=== PATIENT | male | born 1950 | race Caucasian/White ===

== ENCOUNTER 2020-05-17 11:29 | Outpatient (CLI) | payer MEDICARE, SELFPAY ==
--- NOTE | ~2020-05-17 | CT_ITS ---
EXAMINATION: CT foot LT wo con DATE: 05/17/2020 11:56 INDICATION: Left foot pain TECHNIQUE: High resolution computed tomography (CT) of the left foot was performed without intravenou s contrast. Additional sagittal and coronal reconstructions were performed. Automated exposure contro l and iterative reconstruction technique were employed. The dose-length product was 391.83 mGy-cm. COMPARISON: None FINDINGS: Nondisplaced oblique coronal intra-articular fracture at the plantar base of the second metatarsal. A dditional small nondisplaced fracture along the dorsomedial rim at the base of the second metatarsal potentially avulsion fracture at the footplate of the dorsal component of the Lisfranc ligament. Autumn lar small nondisplaced fracture along the plantar/lateral rim of the rim of the medial cuneiform autumn larly suspicious for avulsion fracture the footplate of the plantar component of the Lisfranc ligamen t. No other fractures identified. Alignment remains essentially anatomic including at the tarsal meta tarsal joints. Mild polyarticular osteoarthritis at the tibiotalar, subtalar first metatarsophalangea l and multiple tarsal metatarsal joints. There are several juxta articular erosions with corticated m argins and overhanging edges most prominent at the medial head of the first metatarsal. Additional sm aller erosions at the medial base of the first proximal phalanx, the base of the first, fourth and fi fth metatarsals, the cuboid and lateral cuneiform as well as at the sustentaculum jayda with distribut ion and appearance suspicious for gout. Soft tissue swelling with subcutaneous edema over the dorsola teral aspect of the foot. No left ankle joint effusion. IMPRESSION: 1. Nondisplaced intra-articular fracture at the base of the second metatarsal and likely avulsion fra ctures at the second metatarsal and medial cuneiform footplates of the dorsal and plantar component r espectively of the Lisfranc ligament complex. No subluxation along the Lisfranc joint line. 2. Multiple small scattered juxta articular erosions with corticated margins and overhanging edges wi th distribution and appearance favoring gout. Reviewed, dictated and finalized at location A. IMPRESSION: 1. Nondisplaced intra-articular fracture at the base of the second metatarsal a nd likely avulsion fractures at the second metatarsal and medial cuneiform foot plates of the dorsal and plantar component respectively of the Lisfranc ligamen t complex. No subluxation along the Lisfranc joint line. 2. Multiple small scattered juxta articular erosions with corticated margins an d overhanging edges with distribution and appearance favoring gout.
== END 2020-05-17 11:30 | disposition home or self-care (01) ==
PROVIDERS: PCP Internal Medicine; Visit Provider Internal Medicine
DX: M79.672 Pain in left foot (principal); S92.325A Nondisplaced fracture of second metatarsal bone, left foot, initial encounter for closed fracture
CPT/HCPCS: 73700

== ENCOUNTER 2020-12-28 10:33 | Outpatient (CLI) | payer MEDICARE, SELFPAY ==
[2020-12-28 11:12] LABS: Anion Gap 7 mmol/L (8-16); Blood Urea Nitrogen 38 mg/dL (9-20); Calcium 8.9 mg/dL (8.4-10.2); Carbon Dioxide 31 mmol/L (22-30); Chloride 103 mmol/L (98-107); Estimated Glomerular Filt Rate 30; Glucose 131 mg/dL (75-110); Potassium 4.7 mmol/L (3.4-5.0); Sodium 141 mmol/L (137-145); Uric Acid 7.1 mg/dL (3.5-8.5)
== END 2020-12-28 10:34 | disposition home or self-care (01) ==
PROVIDERS: PCP Internal Medicine
DX: N18.32 Chronic kidney disease, stage 3b (principal); E87.5 Hyperkalemia
CPT/HCPCS: 36415; 80048; 84550

== ENCOUNTER 2021-02-15 13:24 | Outpatient (CLI) | payer MEDICARE, SELFPAY ==
[2021-02-15 14:55] LABS: Anion Gap 8 mmol/L (8-16); Blood Urea Nitrogen 39 mg/dL (9-20); Calcium 9.2 mg/dL (8.4-10.2); Carbon Dioxide 29 mmol/L (22-30); Chloride 106 mmol/L (98-107); Estimated Glomerular Filt Rate 31; Glucose 167 mg/dL (75-110); Sodium 143 mmol/L (137-145); Uric Acid 6.2 mg/dL (3.5-8.5)
[2021-02-15 18:09] LABS: Creatinine Urine 86.3 mg/dL; MALB Creatinine Ratio 134.4 mg/g (0-30)
== END 2021-02-15 13:25 | disposition home or self-care (01) ==
PROVIDERS: PCP Internal Medicine
DX: E79.0 Hyperuricemia without signs of inflammatory arthritis and tophaceous disease (principal); N18.4 Chronic kidney disease, stage 4 (severe)
CPT/HCPCS: 36415; 80048; 82043; 84550

== ENCOUNTER 2022-03-26 16:01 | Outpatient (CLI) | payer MEDICARE, SELFPAY ==
--- NOTE | ~2022-03-26 | US_ITS ---
EXAMINATION: US venous doppler LE RT DATE: 03/26/2022 17:13 INDICATION: RIGHT LEG SWELLING . TECHNIQUE: Grayscale images without and with compression and Doppler images of the right lower extrem ity veins were obtained. COMPARISON: None FINDINGS: Thrombosed right posterior tibial vein (anterior branch). Partially thrombosed right peroneal vein Th e right common femoral vein, profunda (deep) femoral vein, femoral vein, popliteal vein, gastrocnemiu s vein, and greater saphenous vein are patent. IMPRESSION: 1. Deep venous thrombosis involving the right posterior tibial and peroneal veins. A message was left with the balloon sander answering service at 5:56 PM on 03/26/2022, at approximately the s kristan time radiology staff transferred the patient to the ED. Discussed results and plan with Dr. Prashant Croft telephonically at 6:06 PM on 03/26/2022. Reviewed, dictated and finalized at location K. IMPRESSION: 1. Deep venous thrombosis involving the right posterior tibial and peroneal ve ins. A message was left with the balloon sander answering service at 5:56 PM on 03/26/2022, at approximately the same time radiology staff transferred the patient to the E D. Discussed results and plan with Dr. Josue Croft telephonically at 6:06 PM on 03/26/2022.
== END 2022-03-26 16:02 | disposition home or self-care (01) ==
PROVIDERS: PCP Internal Medicine; Visit Provider Student in an Organized Health Care Education/Training Program
DX: I82.401 Acute embolism and thrombosis of unspecified deep veins of right lower extremity (principal); M79.661 Pain in right lower leg
CPT/HCPCS: 93971

== ENCOUNTER 2022-03-26 18:25 | Observation (INO) | payer MEDICARE, MEDICAID, SELFPAY ==
--- NOTE | ~2022-03-26 | US_ITS ---
EXAMINATION: US carotid duplex BI DATE: 03/27/2022 18:14 INDICATION: Syncope TECHNIQUE: Grayscale, color Doppler, and pulsed Doppler images of the cervical carotid arteries were obtained. The degree of vessel stenosis is placed in one of the following categories: normal, <50%, 5 0-69%, >=70% but less than near-occlusion, near-occlusion, or total occlusion. Note that percent sten osis relative to normal distal artery lumen diameter is indirectly measured from velocity measurement s as described by Luca, et al. Radiology 2003; 229:340-346. COMPARISON: 12/07/2007 FINDINGS: RIGHT: The right common carotid artery (CCA) peak systolic velocity (PSV) is 54 cm/s. The right internal car otid artery (ICA) PSV is 52 cm/s. The right ICA end-diastolic velocity (EDV) is 11 cm/s. The right IC A/CCA PSV ratio is 1.0. Grayscale and color Doppler images yield an estimate of <50% diameter reducti on from plaque in the ICA. The external carotid artery (ECA) PSV is 89 cm/s. There is antegrade flow in the right vertebral artery. LEFT: The left CCA PSV is 80 cm/s. The left ICA PSV is 63 cm/s. The left ICA EDV is 25 cm/s. The left ICA/C CA PSV ratio is 0.8. Grayscale and color Doppler images yield an estimate of <50% diameter reduction from plaque in the ICA. The ECA PSV is 136 cm/s. There is antegrade flow in the left vertebral artery . IMPRESSION: 1. <50% stenosis in the right internal carotid artery. 2. <50% stenosis in the left internal carotid artery. 3. Cardiac arrhythmia is present. Correlate with EKG. Reviewed, dictated and finalized at location A.
--- NOTE | ~2022-03-26 | XR_ITS ---
EXAMINATION: XR chest 1V portable Exam Date/Time: 03/26/2022 21:04 CDT CLINICAL HISTORY: Deep vein thrombosis in RLE, pain/ swelling since 03/22 Comparison: 12/02/2015. RESULT: Lines, tubes, and devices: Intact sternotomy wires. Left chest pacer with intact leads. Lungs and pleura: Diffuse reticular pattern in the mid and lower lungs, with streaky subsegmental bi basilar opacities. Cardiomediastinal silhouette: Stable cardiomediastinal silhouette. Other: No acute osseous or upper abdominal finding. IMPRESSION: Pulmonary findings may reflect mild interstitial edema with bibasilar atelectasis. Infection is not e xcluded. Reviewed, dictated and finalized at location K. IMPRESSION: Pulmonary findings may reflect mild interstitial edema with bibasilar atelectas is. Infection is not excluded.
--- NOTE | ~2022-03-26 | NM_ITS ---
EXAMINATION: NM pulmonary perfusion DATE: 03/27/2022 12:16 INDICATION: Deep vein thrombosis with lower limb swelling. Assess for pulmonary embolism. TECHNIQUE: 5.2 mCi Tc-99m MAA by intravenous route. Scintigraphic images of the chest were obtained. COMPARISON: Chest radiograph dated 03/26/2022 FINDINGS: There is homogeneous perfusion throughout the lungs. No discrete ventilation and perfusion mismatch is identified. IMPRESSION: 1. Low probability for pulmonary embolism. Reviewed, dictated and finalized at location A.
--- NOTE | ~2022-03-26 | XR_ITS ---
EXAM: XR ankle RT min 3V, XR foot RT min 3V HISTORY: PAIN SWELLING,REDNESS SINCE 03/22,TWISTED . COMPARISON: None available. FINDINGS: Decreased mineralization. Subtle oblique lucencies in the distal fibula, not visible in al l projections, which may represent old healed trauma, artifact, or subtle acute fracture. Otherwise n o acute fracture. No dislocation. No lytic or blastic lesion. Subcortical cystic change and cortical irregularity in the medial aspect of the talar dome. No erosion or periosteal change. Circumferential ankle swelling greater on the lateral aspect. IMPRESSION: Possible subtle nondisplaced oblique distal right fibular fracture, correlate with point tenderness. Medial talar dome osteochondral defect. Reviewed, dictated and finalized at location K. IMPRESSION: Possible subtle nondisplaced oblique distal right fibular fracture, correlate with point tenderness. Medial talar dome osteochondral defect.
--- NOTE | ~2022-03-26 | CT_ITS ---
EXAMINATION: CT brain wo con DATE: 03/26/2022 21:29 INDICATION: SYNCOPE TECHNIQUE: Computed tomography (CT) of the head was performed without intravenous contrast. The mA wa s adjusted according to patient size. Iterative reconstruction technique was employed. The dose-lengt h product was 605.33 mGy-cm. COMPARISON: 12/04/2007 FINDINGS: No acute intracranial hemorrhage or extra-axial fluid collection. No hydrocephalus, mass, or herniation. No acute ischemic infarct. Unremarkable dural venous sinus attenuation. No acute osseous abnormality. The aerated spaces are clear. Mild atrophy and chronic white matter change. Atherosclerotic intracranial calcifications. 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 IMPRESSION: No acute intracranial process. Reviewed, dictated and finalized at location K.
[2022-03-26 19:04] VITALS: BP 117/58; PULSE 68; RESP 18; TEMP 36.4; O2SAT 96
[2022-03-26 20:45] VITALS: BP 122/76; PULSE 82; RESP 18; O2SAT 100
[2022-03-26 20:55] VITALS: BP 122/76; PULSE 80; RESP 16; O2SAT 98
--- NOTE | 2022-03-26 20:57 | ECG_ITS ---
Measurements Intervals [place] Rate: 76 P: 53 VA: 257 QRS: -79 QRSD: 205 T: 101 QT: 467 QTc: 526 Interpretive Statements ATRIAL SENSE- ELECTRONIC VENTRICULAR PACEMAKER NO FURTHER INTERPRETATION IS POSSIBLE ATYPICAL ECG Electronically Signed On 03-27-2022 6:29:44 CDT by Myke Mccracken D.O.
--- NOTE | 2022-03-26 21:08 | ED.LOWEXIN ---
HPI - Extremity Injury (Lower) General Chief Complaint: Extremity Injury, Lower Stated Complaint: blood clot right leg Time Seen by Provider: 03/26/22 20:59 Source: patient and family Mode of arrival: ambulatory Limitations: no limitations History of Present Illness HPI Narrative: Patient is 71 years old white male referred to the emergency room by his family physician because of deep vein thrombosis involving the right posterior tibial and peroneal veins. 5 days ago patient was a standing talking to some of his friend then had sudden onset of severe sharp pain of the right lower leg then work-up on the floor. Was told by his friend that he passed out for about 2 minutes. Patient denies any chest pain, lightheadedness, dizziness or shortness of breath prior to passing out. The pain at the right ankle got worse after passing out. Patient reported another syncope 3 weeks ago while standing washing his dishes. Work-up and found himself on the floor for unknown duration. He denies any injury at that time or headache or lightheadedness or chest pain or shortness of breath or fever or chills or head injury.. Currently patient main complaint is right ankle pain history of diabetes, hypertension, hyperlipidemia, CABG, pacemaker, patient lives alone. He does not smoke or drink or uses drugs Related Data Allergies Allergy/AdvReac Type Severity Reaction Status Date / Time Penicillins AdvReac Mild makes pt Verified 05/08/16 10:18 weak Review of Systems Review of Systems: All systems reviewed & are unremarkable except as noted in HPI and below Exam Narrative: General appearance: Well-developed, well-nourished Skin: Normal color Head: Normocephalic, nontraumatic Eyes: Clear conjunctiva ENT: Oropharynx normal, ears normal, nose normal Neck: Supple, nontender Chest and respiratory: Airway patent, no respiratory distress, no accessory muscle use Heart: Regular rate/rhythm Abdomen: Soft, nontender, no organomegaly, quiet bowel sounds Vascular: Normal peripheral pulses, normal capillary refill. Musculoskeletal: Right ankle is diffusely swollen, slightly warm, limited range of motion because of pain Neurologic: Alert and oriented ?3, QUALITY CONTROL SPECIALIST is normal as tested, no gross motor deficit Course Vital Signs Vital signs: Vital Signs Temperature 36.4 C 03/26/22 19:04 Pulse Rate 68 03/26/22 19:04 Respiratory Rate 18 03/26/22 19:04 Blood Pressure 117/58 L 03/26/22 19:04 Pulse Oximetry 96 03/26/22 19:04 Temperature 36.4 C 03/26/22 19:04 Pulse Rate 80 03/26/22 20:55 Respiratory Rate 16 03/26/22 20:55 Blood Pressure 122/76 03/26/22 20:55 Pulse Oximetry 98 03/26/22 20:55 MDM - Extremity Injury (Lower) Differential Diagnosis Differential diagnosis: Likely other (Syncope, pulmonary embolism, deep vein thrombosis, ankle fracture) Imaging Data Radiologist's impression: Impressions Chest X-Ray 03/26/22 21:13 IMPRESSION: Pulmonary findings may reflect mild interstitial edema with bibasilar atelectasis. Infection is not excluded. Ankle X-Ray 03/26/22 21:25 IMPRESSION: Possible subtle nondisplaced oblique distal right fibular fracture, correlate with point tenderness. Medial talar dome osteochondral defect. Foot X-Ray 03/26/22 21:25 IMPRESSION: Possible subtle nondisplaced oblique distal right fibular fracture, correlate with point tenderness. Medial talar dome osteochondral defect. Head CT 03/26/22 21:31 IMPRESSION: No acute intracranial process. ECG Data EKG #1: Attestation: I personally reviewed and interpreted this ECG as follows: ECG completion date: 03/26/22 ECG com
--- NOTE | 2022-03-26 21:21 | PC.NURSE ---
Pt in CT at this time.
[2022-03-26 21:55] LABS: Basophils Percent Auto 0.1 % (0.2-1.2); Eosinophils Absolute Auto 0.1 K/mm3 (0-0.3); Eosinophils Percent Auto 0.7 % (0-4.4); Hematocrit 38.7 % (42.0-52.0); Hemoglobin 12.8 g/dL (14.0-18.0); Immature Granulocyte Absolute 0.03 K/mm3 (0.00-0.031); Immature Granulocyte Percent A 0.3 % (0-0.5); Lymphocytes Absolute Auto 2.71 K/mm3 (0.9-3.2); Lymphocytes Percent Auto 28.5 % (18.3-44.2); Mean Corpuscular HGB Conc 33.1 g/dl (32-36); Mean Corpuscular Volume 90.8 fl (80-100); Mean Platelet Volume 10.5 fl (7.4-10.4); Monocytes Percent Auto 10.2 % (2.6-8.5); Neutrophils Absolute Auto 5.7 K/mm3 (1.3-6.7); Neutrophils Percent Auto 60.2 % (45.5-73.1); Platelet Count Result 196 k/mm3 (150-375); Red Blood Count 4.26 M/mm3 (4.6-6.20); Red Cell Distribution Width 14.3 % (11.5-14.5); White Blood Count 9.5 K/mm3 (4.5-10.0)
[2022-03-26 22:04] LABS: Alanine Aminotransferase 17 U/L (6-50); Albumin Level 3.9 g/dL (3.5-5.1); Alkaline Phosphatase 98 U/L (38-126); Anion Gap 8 mmol/L (8-16); Aspartate Amino Transferase 24 U/L (17-59); Blood Urea Nitrogen 55 mg/dL (9-20); Calcium 8.3 mg/dL (8.4-10.2); Carbon Dioxide 27 mmol/L (22-30); Chloride 96 mmol/L (98-107); Estimated CRCL calculation 22 ml/min; Estimated Glomerular Filt Rate 24; Glucose 403 mg/dL (65-110); INR 1.2; Partial Thromboplastin Time 30.6 SECONDS (22.3-36.8); Prothrombin Time 14.3 Seconds (11.1-14.7); Sodium 131 mmol/L (137-145)
[2022-03-26 22:20] LABS: Troponin I 0.087 ng/mL (0.000-0.034)
[2022-03-26 23:37] VITALS: BP 150/76; PULSE 79; RESP 17; O2SAT 94
--- NOTE | 2022-03-26 23:42 | ADMGEN ---
This patient, Desean Orozco, was admitted to IMU Room 213-01 at 2343. Patient/family oriented to hospital policies and general routines including ID bracelet, bed and alarms, visiting hours, pain management, procedures, bathroom and other care routines, personal items, smoking policy, room service/diet, and visiting hours. Information on how to activate the Rapid Response Team has been discussed. Patient/Family are encouraged to report perceived risks to care and to ask questions if they do not understand what they are told or what they should do.
[2022-03-26 23:50] VITALS: BP 145/77; PULSE 76; RESP 20; TEMP 36.8; O2SAT 99; BMI 25.7
[2022-03-27] VITALS (13 sets, daily range): BP systolic 104–165; BP diastolic 33–66; PULSE 65–91; RESP 14–20; TEMP 36.7–37.6; O2SAT 94–99
--- NOTE | 2022-03-27 | ECHO_ITS ---
Patient Info Name: Desean Orozco Age: 71 years : 1950 Gender: Male Ht: 67 in Wt: 164 lbs BSA: 1.89 m2 HR: 84 bpm BP: 123 / 54 mmHg Heart Rhythm: Sinus Rhythm, Left Bundle Branch Block Technical Quality: Good Exam Date: 03/27/2022 4:09 PM Exam Location: [facility] Exam Room: 213 Patient Status: Inpatient Admit Date: 03/27/2022 Staff Ordering Physician: Anup Mckee MD Flight Engineer Helicopter: Lynette Avina RDCS Attending Provider: Nancy Warner DO Referring Physician: Rafi SNYDER; Exam Type: CA echo doppler color flow Study Info Indications - syncope hx/o cad cabg ppm Complete two-dimensional, color flow and Doppler transthoracic echocardiogram is performed. Summary 1. Complete two-dimensional, color flow and Doppler transthoracic echocardiogram is performed. 2. Mild left ventricular enlargement. Sigmoid septum. Moderate global hypokinesis with akinesis and thinning of the basal and mid inferoseptal segments, and worse hypokinesis of the distal septum and apex. Ejection fraction visually is 40-45%, measured 46%. Grade 2 diastolic dysfunction is present. 3. Left atrial chamber dimension is moderately enlarged. 4. There is mild aortic valve regurgitation. 5. There is mild mitral valve regurgitation. 6. There is mild tricuspid valve regurgitation. 7. Mild pulmonary hypertension, estimated pulmonary arterial systolic pressure is 40 mmHg. 8. Normal sinus rhythm. Left Ventricle Left ventricular chamber dimension is mildly enlarged. Left ventricular systolic function is normal, estimated at 40-45%. There is no increased left ventricular wall thickness. Left ventricular septal wall motion is normal. The left ventricular diastolic function is grade II diastolic dysfunction. Right Ventricle Right ventricular chamber dimension is normal. Right ventricular systolic function is normal. Linear artifact in right ventricle suggestive of catheter(s), pacemaker lead(s), or ICD lead(s). Left Atria Left atrial chamber dimension is moderately enlarged. Right Atria Right atrial chamber dimension is normal. Aortic Valve The aortic valve is trileaflet. There is mild aortic valve sclerosis. There is no aortic valve stenosis. There is mild aortic valve regurgitation. Pulmonic Valve The pulmonic valve is normal. There is no pulmonic valve stenosis. There is trace pulmonic regurgitation. Mitral Valve The mitral valve has thickened leaflets. There is no mitral valve stenosis. There is mild mitral valve regurgitation. Tricuspid Valve The tricuspid valve leaflets are normal. There is no significant tricuspid valve stenosis. There is mild tricuspid valve regurgitation. Mild pulmonary hypertension, estimated pulmonary arterial systolic pressure is 40 mmHg. Pericardium/Pleural The pericardium appears normal. There is no pericardial effusion. Inferior Vena Cava Normal inferior vena cava with >50% collapse upon inspiration consistent with Empty right atrial pressure, 10 mmHg. Aorta The aortic root size at the sinus of Valsalva is normal. The prox ascending aorta size is normal. Left Ventricular Outflow Tract Name Value Normal LVOT 2D LVOT Diameter
[2022-03-27] MEDS: ENOXAPARIN 80 MG/0.8 ML SYRINGE 70 MG SUB-Q (01:00)
[2022-03-27] MEDS: SODIUM CHLORIDE 0.9% IV 1,000 ML 125 ML IV CONT ×3 (01:01→17:20)
[2022-03-27 01:33] LABS: Troponin I 0.078 ng/mL (0.000-0.034)
[2022-03-27 05:10] LABS: Anion Gap 6 mmol/L (8-16); Blood Urea Nitrogen 49 mg/dL (9-20); Calcium 8.1 mg/dL (8.4-10.2); Carbon Dioxide 26 mmol/L (22-30); Chloride 102 mmol/L (98-107); Estimated CRCL calculation 24 ml/min; Estimated Glomerular Filt Rate 27; Glucose 253 mg/dL (65-110); Potassium 3.8 mmol/L (3.4-5.0); Sodium 134 mmol/L (137-145)
[2022-03-27 05:24] LABS: Troponin I 0.075 ng/mL (0.000-0.034)
[2022-03-27 08:42] LABS: Glucose Point of Care 207 mg/dl (65-105)
[2022-03-27 14:33] LABS: Uric Acid 6.3 mg/dL (3.5-8.5)
--- NOTE | 2022-03-27 15:20 | PM.IMPN ---
Progress Note: A&P Assessment and Plan (1) Deep vein thrombosis (DVT) of distal vein of right lower extremity: Qualifiers: Chronicity: acute Qualified Code(s): I82.4Z1 - Acute embolism and thrombosis of unspecified deep veins of right distal lower extremity Code(s): I82.4Z1 - Acute embolism and thrombosis of unspecified deep veins of right distal lower extremity Status: Acute Assessment and Plan: Lovenox given in the ED. No contraindications to oral anticoagulation. Will start the patient on Eliquis. (2) Syncope: Qualifiers: Syncope type: unspecified Qualified Code(s): R55 - Syncope and collapse Code(s): R55 - Syncope and collapse Status: Acute Assessment and Plan: Workup in progress (3) DORINDA (acute kidney injury): Code(s): N17.9 - Acute kidney failure, unspecified Status: Acute Assessment and Plan: Baseline creatinine appears to be around 2.2. Patient is likely mildly volume depleted. Continue IV fluids monitor BNP daily. (4) Closed right fibular fracture: Qualifiers: Encounter type: subsequent encounter Fibula location: distal Fracture healing: with nonunion Fracture morphology: unspecified fracture morphology Qualified Code(s): S82.831K - Other fracture of upper and lower end of right fibula, subsequent encounter for closed fracture with nonunion Code(s): S82.401A - Unspecified fracture of shaft of right fibula, initial encounter for closed fracture Status: Acute Assessment and Plan: Orthopedic consult (5) Elevated troponin: Code(s): R77.8 - Other specified abnormalities of plasma proteins Status: Acute Subjective Date/time seen: 03/27/22 15:20 No complaints. Patient wants to go home Review of Systems Review of Systems: 10 point ROS negative except as stated in HPI / Subjective Exam Narrative: General: alert and oriented Psych: appropriate mood nad affect Eyes: PERRLA Neck: Trachea midline, no new lesions Skin: no changes Lungs: CTA Cardiac: Normal S1,S2, no MGR ABD: soft, nd, nt, nbs Ext: no new lesions, no cce Vasc: Pulses intact Objective Data Vital Signs Vital Signs: Vital Signs - 24 hr 03/26/22 19:04 03/26/22 20:45 03/26/22 20:55 Temperature 97.6 F Pulse Rate 68 82 80 Respiratory Rate 18 18 16 Blood Pressure 117/58 L 122/76 122/76 Pulse Oximetry 96 100 98 03/26/22 23:37 03/26/22 23:50 03/27/22 00:00 Temperature 98.2 F Pulse Rate 79 76 73 Respiratory Rate 17 20 20 Blood Pressure 150/76 H 145/77 H Pulse Oximetry 94 99 99 03/27/22 02:00 03/27/22 04:00 03/27/22 06:00 Temperature 99.1 F Pulse Rate 86 65 88 Respiratory Rate 16 Blood Pressure 104/33 L Pulse Oximetry 95 03/27/22 07:52 03/27/22 08:00 03/27/22 08:41 Temperature 98.0 F Pulse Rate 68 89 Respiratory Rate 14 Blood Pressure 123/54 L Pulse Oximetry 94 94 03/27/22 10:00 03/27/22 12:00 03/27/22 14:00 Temperature Pulse Rate 87 76 87 Respiratory Rate Blood Pressure Pulse Oximetry Intake/Output Intake/Output: Intake & Output 03/24/22 03/25/22 03/26/22 03/27/22 23:59 23:59 23:59 23:59 Intake Total 1630 Output Total 150 Balance 1480 Meds/Results Medications: Active Medications Generic Name Dose Route Start Last Admin Trade Name Freq PRN Reason Stop Dose Admin Acetaminophen 650 mg 03/26/22 22:29 Acetaminophen 325 Mg Tablet PO Q4H PRN Mild Pain (1-3) or Fever Allopurinol 150 mg 03/28/22 09:00 Allopurinol 150 Mg Tablet PO DAILY [facility] Apixaban 10 mg 03/27/22 21:00 Apixaban 5 Mg Tablet PO 04/03/22 20:59 Q12HR [facility] Aspirin 81 mg 03/28/22 09:00 Aspirin 81 Mg Enteric Tablet PO DAILY [facility] Atorvastatin Calcium 40 mg 03/28/22 09:00 Atorvastatin 40 Mg Tablet PO DAILY [facility] Carvedilol 12.5 mg 03/27/22 21:00 Carvedilol 12.5 Mg Tablet PO Q12HR [facility] Dextros
[2022-03-27] MEDS: GABAPENTIN 300 MG CAPSULE PO (17:21)
[2022-03-27] MEDS: INSULIN ASPART (*BKC) 100 UNITS/ML SUB-Q (17:21)
[2022-03-27 17:34] LABS: Glucose Point of Care 298 mg/dl (65-105)
[2022-03-27 21:07] LABS: Glucose Point of Care 221 mg/dl (65-105)
[2022-03-27 21:29] LABS: SARS-CoV-2 RNA PCR Negative
[2022-03-27] MEDS: carvediloL 12.5 MG TABLET PO (21:59)
[2022-03-27] MEDS: APIXABAN 5 MG TABLET 10 MG PO (21:59)
[2022-03-28] VITALS (9 sets, daily range): BP systolic 119–142; BP diastolic 41–67; PULSE 61–84; RESP 16–20; TEMP 36.8–37.5; O2SAT 94–99
[2022-03-28] MEDS: SODIUM CHLORIDE 0.9% IV 1,000 ML 125 ML IV CONT ×3 (04:01→23:15)
--- NOTE | 2022-03-28 04:04 | PC.NURSE ---
Pt educated on Full code vs DNR. He states that he wants to be a DNR. RN Elizabeth Camargo verified pt's decision.
[2022-03-28 05:24] LABS: Anion Gap 5 mmol/L (8-16); Blood Urea Nitrogen 35 mg/dL (9-20); Calcium 8.1 mg/dL (8.4-10.2); Carbon Dioxide 27 mmol/L (22-30); Chloride 105 mmol/L (98-107); Estimated CRCL calculation 28 ml/min; Estimated Glomerular Filt Rate 31; Glucose 168 mg/dL (65-110); Potassium 4.2 mmol/L (3.4-5.0); Sodium 137 mmol/L (137-145)
[2022-03-28 08:50] LABS: Glucose Point of Care 190 mg/dl (65-105)
[2022-03-28] MEDS: GABAPENTIN 300 MG CAPSULE PO ×3 (09:10→17:53)
[2022-03-28] MEDS: APIXABAN 5 MG TABLET 10 MG PO ×2 (09:10→21:17)
[2022-03-28] MEDS: carvediloL 12.5 MG TABLET PO ×2 (09:11→21:17)
[2022-03-28] MEDS: ATORVASTATIN 40 MG TABLET PO (09:11)
[2022-03-28] MEDS: hydroCHLOROthiazide 25 MG TABLET PO (09:11)
[2022-03-28] MEDS: ASPIRIN 81 MG ENTERIC TABLET PO (09:11)
[2022-03-28] MEDS: allopurinoL 150 MG TABLET PO (09:11)
--- NOTE | 2022-03-28 10:04 | PC.NURSE ---
Pt claims he does not believe his right fibula is fractured, stating the scans they did in the ER are just a scam to get more money out of me and to charge me more money to bandage it up. I will walk around this room if I damn please and you can't stop me. This RN educated the patient that the xray report indicates a nondisplaced fracture and that there are orders for bedrest. Patient refuses to comply with bedrest orders. Call to orthopedic doctor placed, message left for .
--- NOTE | 2022-03-28 11:39 | PM.CNOR ---
Assessment and Plan Assessment and plan (1) Right ankle injury: Qualifiers: Encounter type: initial encounter Qualified Code(s): S99.911A - Unspecified injury of right ankle, initial encounter Code(s): S99.911A - Unspecified injury of right ankle, initial encounter Status: Acute Assessment and Plan: 71-year-old male with a right ankle injury. This appears to be more of a sprain. I will order a stirrup type ankle splint for this patient. He can be weight-bearing as tolerated using a walker or crutches. Ice and elevation as well as gentle range of motion will be primary treatment modalities initially. Simple analgesics should suffice for discomfort. Can follow up with me in couple of weeks in the office. Thank you for the consultation. History of Present Illness HPI Consult date: 03/28/22 Consult reason: other (Right ankle injury) Chief complaint: Syncope,Right Deep Vein Thrombosis,Rt Fibular Fx Narrative: 71-year-old male who is admitted after having had a syncopal event several days ago. Said that he had felt a sharp pain in his right leg and then collapsed. He is not sure exactly how he might have injured his ankle and foot. He has got some soreness at the lateral aspect of right ankle and foot along with bruising. No problems like this in the past. [facility] Family History Family History Mother Lung cancer Smoker Father Cancer Sibling Kidney disease Heart attack Social History Social History Smoking status: Never smoker Alcohol intake: never Substance use: never Spiritual care concerns: No Meds Home Medications and Allergies Home Medications Medication Instructions Recorded Confirmed Type allopurinol 150 mg PO DAILY 03/27/22 03/27/22 History aspirin [Aspir-81] 81 mg PO DAILY 03/27/22 03/27/22 History atorvastatin 40 mg PO DAILY 03/27/22 03/27/22 History carvedilol 12.5 mg PO BID 03/27/22 03/27/22 History gabapentin 300 mg PO TID 03/27/22 03/27/22 History glipizide 10 mg PO DAILY 03/27/22 03/27/22 History hydrochlorothiazide 25 mg PO DAILY 03/27/22 03/27/22 History natrnzcbjzrj-jov-east-FA-vit K 1 tablet PO DAILY 03/27/22 03/27/22 History [Adults Multivitamin] sodium zirconium cyclosilicate 5 g PO DIRECTED 03/27/22 03/27/22 History [Lokelma] vitamins A,C,C-gnen-dwwmbj [Eye 1 tablet PO DAILY 03/27/22 03/27/22 History Multivitamin] Allergies Allergy/AdvReac Type Severity Reaction Status Date / Time Penicillins AdvReac Mild makes pt Verified 05/08/16 10:18 weak Vital Signs Vital Signs - 24 hr 03/27/22 12:00 03/27/22 14:00 03/27/22 16:00 Temperature 99 F Pulse Rate 76 87 75 Respiratory Rate 16 Blood Pressure 165/66 H Pulse Oximetry 98 03/27/22 20:00 03/27/22 21:00 03/28/22 00:00 Temperature 99.7 F H 99.5 F Pulse Rate 72 70 Respiratory Rate 16 20 Blood Pressure 139/63 119/48 L Pulse Oximetry 97 95 94 03/28/22 04:00 03/28/22 08:00 03/28/22 09:11 Temperature 98.8 F 98.6 F Pulse Rate 72 72 71 Respiratory Rate 16 18 Blood Pressure 126/41 L 139/59 L Pulse Oximetry 96 96 Exam Const: General: cooperative, comfortable and no acute distress Nutritional Appearance: well nourished (BMI 26.1) Extrem: Other: Examination of the right foot and ankle reveals extensive bruising laterally with tenderness primarily over the anterior talofibular ligament. No significant tenderness along the fibular shaft. Talus is stable mortise. Some restriction of ankle or hindfoot motion secondary to swelling. Neurovascular status grossly intact right lower extremity. No medial tenderness, swelling or bruising noted. Results Labs Result Diagrams: 03/26/22 21:39 03/28/22 04:58 Labs: Abnormal lab results 03/27/22 03/27/22 03/28/22 Range/Units 16:46 20:56 04:58 Anion Gap 5 L (8-16)
--- NOTE | 2022-03-28 11:56 | PM.IMPN ---
Progress Note: A&P Assessment and Plan (1) Deep vein thrombosis (DVT) of distal vein of right lower extremity: Qualifiers: Chronicity: acute Qualified Code(s): I82.4Z1 - Acute embolism and thrombosis of unspecified deep veins of right distal lower extremity Code(s): I82.4Z1 - Acute embolism and thrombosis of unspecified deep veins of right distal lower extremity Status: Acute Assessment and Plan: Lovenox given in the ED. No contraindications to oral anticoagulation. Will start the patient on Eliquis. (2) Syncope: Qualifiers: Syncope type: unspecified Qualified Code(s): R55 - Syncope and collapse Code(s): R55 - Syncope and collapse Status: Acute Assessment and Plan: Workup in progress (3) DORINDA (acute kidney injury): Code(s): N17.9 - Acute kidney failure, unspecified Status: Acute Assessment and Plan: resolved (4) Closed right fibular fracture: Qualifiers: Encounter type: subsequent encounter Fibula location: distal Fracture healing: with nonunion Fracture morphology: unspecified fracture morphology Qualified Code(s): S82.831K - Other fracture of upper and lower end of right fibula, subsequent encounter for closed fracture with nonunion Code(s): S82.401A - Unspecified fracture of shaft of right fibula, initial encounter for closed fracture Status: Acute Assessment and Plan: Orthopedic consult - no intervention needed (5) Elevated troponin: Code(s): R77.8 - Other specified abnormalities of plasma proteins Status: Acute Assessment and Plan: no rise and fall will consult cardiology given echo results with syncope Subjective Date/time seen: 03/28/22 11:56 no new complaints Exam Narrative: General: alert and oriented Psych: appropriate mood nad affect Eyes: PERRLA Neck: Trachea midline, no new lesions Skin: no changes Lungs: CTA Cardiac: Normal S1,S2, no MGR ABD: soft, nd, nt, nbs Ext: no new lesions, no cce Vasc: Pulses intact Objective Data Vital Signs Vital Signs: Vital Signs - 24 hr 03/27/22 12:00 03/27/22 14:00 03/27/22 16:00 Temperature 99 F Pulse Rate 76 87 75 Respiratory Rate 16 Blood Pressure 165/66 H Pulse Oximetry 98 03/27/22 20:00 03/27/22 21:00 03/28/22 00:00 Temperature 99.7 F H 99.5 F Pulse Rate 72 70 Respiratory Rate 16 20 Blood Pressure 139/63 119/48 L Pulse Oximetry 97 95 94 03/28/22 04:00 03/28/22 08:00 03/28/22 09:11 Temperature 98.8 F 98.6 F Pulse Rate 72 72 71 Respiratory Rate 16 18 Blood Pressure 126/41 L 139/59 L Pulse Oximetry 96 96 Intake/Output Intake/Output: Intake & Output 03/25/22 03/26/22 03/27/22 03/28/22 23:59 23:59 23:59 23:59 Intake Total 2930 1940 Output Total 450 925 Balance 2480 1015 Meds/Results Medications: Active Medications Generic Name Dose Route Start Last Admin Trade Name Freq PRN Reason Stop Dose Admin Acetaminophen 650 mg 03/26/22 22:29 Acetaminophen 325 Mg Tablet PO Q4H PRN Mild Pain (1-3) or Fever Allopurinol 150 mg 03/28/22 09:00 03/28/22 09:11 Allopurinol 150 Mg Tablet PO 150 mg DAILY KIA Administration Apixaban 10 mg 03/27/22 21:00 03/28/22 09:10 Apixaban 5 Mg Tablet PO 04/03/22 09:01 10 mg Q12HR KIA Administration Apixaban 5 mg 04/03/22 21:00 Apixaban 5 Mg Tablet PO Q12HR KIA Aspirin 81 mg 03/28/22 09:00 03/28/22 09:11 Aspirin 81 Mg Enteric Tablet PO 81 mg DAILY KIA Administration Atorvastatin Calcium 40 mg 03/28/22 09:00 03/28/22 09:11 Atorvastatin 40 Mg Tablet PO 40 mg DAILY KIA Administration Carvedilol 12.5 mg 03/27/22 21:00 03/28/22 09:11 Carvedilol 12.5 Mg Tablet PO 12.5 mg Q12HR KIA Administration Dextrose 12.5 gm 03/27/22 13:53 Dextrose 50% 25 Gm/50 Ml Syringe IV PUSH PRN PRN Hypoglycemia Protocol Gabapentin 300 mg 03/27/22 17:00 03/10
[2022-03-28 12:08] LABS: Glucose Point of Care 215 mg/dl (65-105)
--- NOTE | 2022-03-28 12:21 | PCPTNOTE ---
Unable to see patient until he has a splint. Will follow.
[2022-03-28] MEDS: INSULIN ASPART (*BKC) 100 UNITS/ML SUB-Q ×2 (13:14→17:53)
[2022-03-28 17:40] LABS: Glucose Point of Care 228 mg/dl (65-105)
[2022-03-28 20:33] LABS: Glucose Point of Care 225 mg/dl (65-105)
[2022-03-29] VITALS: BP 121/50; PULSE 68; PULSE 69; RESP 16; TEMP 36.8; O2SAT 99
[2022-03-29 04:00] VITALS: BP 132/56; PULSE 67; PULSE 68; RESP 18; TEMP 37.1; O2SAT 92
[2022-03-29 05:21] VITALS: O2SAT 94
[2022-03-29 08:00] VITALS: BP 148/64; PULSE 65; PULSE 68; RESP 16; TEMP 36.8; O2SAT 93
[2022-03-29] MEDS: SODIUM CHLORIDE 0.9% IV 1,000 ML 125 ML IV CONT (08:05)
[2022-03-29 08:37] LABS: Glucose Point of Care 162 mg/dl (65-105)
[2022-03-29 09:00] VITALS: PULSE 65
[2022-03-29] MEDS: carvediloL 12.5 MG TABLET PO (09:00)
[2022-03-29] MEDS: GABAPENTIN 300 MG CAPSULE PO ×2 (09:00→12:37)
[2022-03-29] MEDS: hydroCHLOROthiazide 25 MG TABLET PO (09:00)
[2022-03-29] MEDS: APIXABAN 5 MG TABLET 10 MG PO (09:00)
[2022-03-29] MEDS: allopurinoL 150 MG TABLET PO (09:00)
[2022-03-29] MEDS: ATORVASTATIN 40 MG TABLET PO (09:01)
[2022-03-29] MEDS: ASPIRIN 81 MG ENTERIC TABLET PO (09:01)
[2022-03-29 11:46] LABS: Glucose Point of Care 219 mg/dl (65-105)
[2022-03-29 12:00] VITALS: BP 149/67; PULSE 60; PULSE 72; RESP 18; TEMP 37; O2SAT 98
[2022-03-29] MEDS: INSULIN ASPART (*BKC) 100 UNITS/ML SUB-Q (12:37)
--- NOTE | 2022-03-29 12:42 | PM.DS ---
DS: Admitting Diagnosis Discharge Date 03/29/22 Admitting Diagnosis DVT DS: Discharge Diagnosis Discharge Diagnosis (1) Deep vein thrombosis (DVT) of distal vein of right lower extremity: Qualifiers: Chronicity: acute Qualified Code(s): I82.4Z1 - Acute embolism and thrombosis of unspecified deep veins of right distal lower extremity Code(s): I82.4Z1 - Acute embolism and thrombosis of unspecified deep veins of right distal lower extremity Status: Acute Assessment and Plan: Lovenox given in the ED. No contraindications to oral anticoagulation. Will start the patient on Eliquis. (2) Syncope: Qualifiers: Syncope type: unspecified Qualified Code(s): R55 - Syncope and collapse Code(s): R55 - Syncope and collapse Status: Acute Assessment and Plan: Workup in progress (3) DORINDA (acute kidney injury): Code(s): N17.9 - Acute kidney failure, unspecified Status: Acute Assessment and Plan: resolved (4) Closed right fibular fracture: Qualifiers: Encounter type: subsequent encounter Fibula location: distal Fracture healing: with nonunion Fracture morphology: unspecified fracture morphology Qualified Code(s): S82.831K - Other fracture of upper and lower end of right fibula, subsequent encounter for closed fracture with nonunion Code(s): S82.401A - Unspecified fracture of shaft of right fibula, initial encounter for closed fracture Status: Acute Assessment and Plan: Orthopedic consult - no intervention needed (5) Elevated troponin: Code(s): R77.8 - Other specified abnormalities of plasma proteins Status: Acute Assessment and Plan: no rise and fall will consult cardiology given echo results with syncope DS: Summary Hospital Course Hospital Course: Patient was admitted for a near syncopal episode. Evaluation revealed a DVT with possible ankle fracture. Orthopedic evaluated the patient did does not feel he has an ankle fracture that needs intervention. Follow up with ortho. Patient is also started on Eliquis for DVT. Follow up Cardiology as well Time Spent with Patient Time attestation: Total time spent providing and/or coordinating discharge services: Exam Narrative: General: alert and oriented Psych: appropriate mood nad affect Eyes: PERRLA Neck: Trachea midline, no new lesions Skin: no changes Lungs: CTA Cardiac: Normal S1,S2, no MGR ABD: soft, nd, nt, nbs Ext: no new lesions, no cce Vasc: Pulses intact DS: Data Data Completed and Pending Labs on day of discharge: Labs from last 24 hours 03/29/22 03/29/22 03/28/22 11:20 07:47 20:26 POC Capillary Glucose 219 H 162 H 225 H 03/28/22 17:38 POC Capillary Glucose 228 H Discharge Plan Discharge Attending physician on discharge: Anup Mckee Consulting providers: Nael Wolfe ; Patty Ulloa Discharging Clinician: Anup Mckee Patient Disposition: Home, Self-Care Activity: no preference Diet: as tolerated Discharge Instructions: For Dr. Wofle: Please call [facility] at as soon as possible to arrange for follow-up appointment to be seen in two weeks with Satish Dillon, our nurse practitioner. Also, call the office with any orthopedic/surgical related questions prior to follow-up. Patient Instructions: Antibiotic Form Stand Alone Forms: General Discharge Information Follow-up/Referrals: Patty Ulloa APN-C [Advanced Practice Nurse] - Julio C,uSrinder Dela Cruz MD [Primary Care Provider] - Nael Wolfe MD [Physician] - Discharge Medications: New Eliquis 5 mg Tablet 10 mg PO Q12HR 5 Days Qty: 20 RF: 0 Eliquis 5 mg Tablet 5 mg PO Q12HR 30 Days Qty: 60 RF: 0 Continued atorvastatin 40 mg tablet 40 mg PO DAILY RF: 0 carvedil
--- NOTE | 2022-03-29 12:55 | PCPTNOTE ---
Attempted physical therapy evaluation, patient still does not have a splint to ambulate with. Patient will be discharging this afternoon once the splint arrives. Will follow.
--- NOTE | 2022-03-29 13:58 | PCCCNOTE ---
On 03/29/22, the student, [Liv Almanzar], provided care and completed [facility] documentation on this patient. I have reviewed the student's documentation and agree with the findings.
--- NOTE | 2022-04-08 01:18 | PM.IMHP ---
H&P: HPI History of Present Illness Date/Time: 03/27/22 06:45 LATE ENTRY Chief Complaint: Blood clot in right leg Narrative: 71-year-old male with past medical history of chronic kidney disease stage III, coronary artery disease, 3rd degree or block, hypertension, hyperlipidemia and type 2 diabetes mellitus who presented to the ER after outpatient imaging demonstrated right lower extremity DVT in the posterior tibial peroneal veins. The patient reports that 3 weeks ago while standing washing dishes he suddenly passed out. He woke up on the floor and does not know the duration of his syncopal event. He did not have any injury at that time or headache. He denies any lightheadedness or chest pain or shortness of breath. He does have a pacemaker in place. He denied any presyncopal symptoms. In 5 days ago patient was standing talking to some friends when he had sudden onset of severe pain in his right lower calf with some associated lightheadedness, dizziness and he passed out. His friends help the some to the floor any did not hit his head. He reported they still continued to have pain in his right lower leg when he would bear weight. He reported pain was 10/10 in since he is worst. It was unrelieved despite NSAIDs. He went to his primary care physician's office on the and had an outpatient venous Doppler which demonstrated peroneal and tibial DVT. He denies any chest pain, shortness of breath or palpitations. He has never had a history of blood clots before. He denies any hematochezia or melena, he denies any hematuria. In the ER he received a dose of Lovenox. Unfortunately due to patient's chronic kidney disease he was not a candidate for a CTA. We could not perform a V/Q scan overnight. The patient was admitted for observation for evaluation with echocardiogram and V/Q scan in a.m.. Review of Systems Review of Systems: 12 systems were reviewed with pertinent positives and negatives per HPI. Except as documented in the HPI, all other systems were reviewed and are negative. [facility] Past Medical History Medical History (Updated 04/08/22 @ 01:50 by Nancy Warner DO) Coronary artery disease Diabetic peripheral neuropathy Essential hypertension Gout History of diverticulitis Hyperlipidemia Kidney stones Third degree heart block Status post pacemaker Type 2 diabetes mellitus Surgical History Surgical History History of appendectomy History of colonoscopy with polypectomy (~2003) Pacemaker (11/2015) Due to third-degree heart block S/P CABG x 1 (~2001) 1 vessel CABG Family History Family History Mother Lung cancer Smoker Father Hematologic malignancy Sibling Kidney disease Heart attack Social History Social History Social History: Code status: DNR/DNI Smoking status: Never smoker Alcohol intake: never Substance use: never Living arrangements: alone Occupation/Education: retired 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 [employer] Spiritual care concerns: No Meds Home Medications and Allergies Home Medications Medication Instructions Recorded Confirmed Type allopurinol 300 mg tablet 150 mg PO DAILY 03/27/22 03/27/22 History aspirin 81 mg tablet,delayed 81 mg PO DAILY 03/27/22 03/27/22 History release atorvastatin 40 mg tablet 40 mg PO DAILY 03/27/22 03/27/22 History carvedilol 12.5 mg tablet 12.5 mg PO BID 03/27/22 03/27/22 History gabapentin 300 mg capsule 300 mg PO TID 03/27/22 03/27/22 History glipizide 10 mg tablet 10 mg PO DAILY 03/27/22 03/27/22 History hydrochlorothiazide 25 mg tablet 25 mg PO DAILY 03/27/22 03/27/22 History multivit with minerals-iron 18 1 tablet PO DAILY 03/27/22 03/27/22 History mg-folic ac 400 mcg-vit K 25 mcg tablet (Adults Multivitamin) sodium
== END 2022-03-29 15:09 | disposition home or self-care (01) ==
LOC: ANHED 22:21 → ANHIMU 03-29 10:50
PROVIDERS: Admitting Provider Internal Medicine; Emergency Provider Emergency Medicine; PCP Internal Medicine; Visit Provider Chiropractor
DX: I82.441 Acute embolism and thrombosis of right tibial vein (principal); I82.451 Acute embolism and thrombosis of right peroneal vein; S82.831A Other fracture of upper and lower end of right fibula, initial encounter for closed fracture; S99.911A Unspecified injury of right ankle, initial encounter; R55 Syncope and collapse; R77.8 Other specified abnormalities of plasma proteins; E11.9 Type 2 diabetes mellitus without complications; I10 Essential (primary) hypertension; E78.5 Hyperlipidemia, unspecified; Z95.1 Presence of aortocoronary bypass graft; Z95.0 Presence of cardiac pacemaker; N17.9 Acute kidney failure, unspecified; Z20.822 Contact with and (suspected) exposure to COVID-19
CPT/HCPCS: 36415; 70450; 71045; 73610; 73630; 78580; 80048; 80053; 82948; 84484; 84550; 85025; 85610; 85730; 93005; 93306; 93880; 96360; 96361; 96372; 99285; A9270; A9540; C9803; G0378; J1650; J1815; J7030; U0003; U0005

== ENCOUNTER 2022-04-18 10:03 | Observation (INO) | payer MEDICARE, MEDICAID, SELFPAY ==
[2022-04-18] VITALS (8 sets, daily range): BP systolic 116–152; BP diastolic 53–67; PULSE 60–75; RESP 16–18; TEMP 36.3–36.5; O2SAT 95–99; BMI 25.4
--- NOTE | ~2022-04-18 | XR_ITS ---
EXAMINATION: XR foot RT min 3V DATE: 04/18/2022 13:09 INDICATION: Right foot pain. TECHNIQUE: 4 views of right foot were obtained. COMPARISON: Right foot radiographs 03/26/2022 FINDINGS: Again seen is an oblique fracture deformity of distal fibula. There is mild osteoarthritis of some of the interphalangeal joints and midfoot joints. There is an enthesophyte at posterior aspec t of calcaneal tuberosity. IMPRESSION: 1. Age-indeterminate oblique fracture deformity of distal fibula again seen. 2. Polyarticular osteoarthritis. Reviewed, dictated and finalized at location A.
--- NOTE | ~2022-04-18 | XR_ITS ---
XR knee RT min 4V 04/19/2022 09:52 Indication: Right knee pain with joint effusion Procedure: 4 views right knee Comparison: No prior studies for comparison. Findings: Large joint effusion. There is chondrocalcinosis. No acute fracture or traumatic malalignme nt. There is mild osteoarthritis. Impression: 1: No acute fracture. 2: Large joint effusion. 3: Chondrocalcinosis with mild osteoarthritis. Reviewed, dictated and finalized at location B. Impression: 1: No acute fracture. 2: Large joint effusion. 3: Chondrocalcinosis with mild osteoarthritis.
--- NOTE | ~2022-04-18 | XR_ITS ---
XR ankle RT min 3V 04/18/2022 12:50 Indication: Right ankle pain Procedure: 4 views of the right ankle Comparison: 04/09/2022 Findings: There is an oblique nondisplaced distal fibular fracture. No significant change to alignmen t. Ankle mortise intact. There is an osteochondral defect involving the medial aspect of the talar dome. Mild osteoarthritis o f the ankle. Impression: 1: Oblique nondisplaced distal fibular metadiaphyseal fracture. 2: Osteochondral defect medial margin of the talar dome. Reviewed, dictated and finalized at location B. Impression: 1: Oblique nondisplaced distal fibular metadiaphyseal fracture. 2: Osteochondral defect medial margin of the talar dome.
[2022-04-18 13:06] LABS: Basophils Percent Auto 0.2 % (0.2-1.2); Eosinophils Percent Auto 0.2 % (0-4.4); Hematocrit 41.5 % (42.0-52.0); Hemoglobin 13.1 g/dL (14.0-18.0); Immature Granulocyte Absolute 0.05 K/mm3 (0.00-0.031); Immature Granulocyte Percent A 0.4 % (0-0.5); Lymphocytes Absolute Auto 1.76 K/mm3 (0.9-3.2); Lymphocytes Percent Auto 14.7 % (18.3-44.2); Mean Corpuscular HGB Conc 31.6 g/dl (32-36); Mean Corpuscular Hemoglobin 28.4 pg (26-34); Mean Platelet Volume 10.3 fl (7.4-10.4); Monocytes Absolute Auto 0.9 K/mm3 (0.1-0.6); Monocytes Percent Auto 7.1 % (2.6-8.5); Neutrophils Absolute Auto 9.3 K/mm3 (1.3-6.7); Neutrophils Percent Auto 77.4 % (45.5-73.1); Platelet Count Result 250 k/mm3 (150-375); Red Blood Count 4.61 M/mm3 (4.6-6.20); Red Cell Distribution Width 14.6 % (11.5-14.5)
[2022-04-18 13:18] LABS: Alanine Aminotransferase 19 U/L (6-50); Albumin Level 3.9 g/dL (3.5-5.1); Alkaline Phosphatase 133 U/L (38-126); Anion Gap 10 mmol/L (8-16); Aspartate Amino Transferase 21 U/L (17-59); Bilirubin,Total 1.7 mg/dL (0.2-1.3); Blood Urea Nitrogen 53 mg/dL (9-20); Calcium 9.4 mg/dL (8.4-10.2); Carbon Dioxide 30 mmol/L (22-30); Chloride 97 mmol/L (98-107); Estimated CRCL calculation 19 ml/min; Estimated Glomerular Filt Rate 22; Glucose 297 mg/dL (65-110); Potassium 3.5 mmol/L (3.4-5.0); Sodium 137 mmol/L (137-145)
--- NOTE | 2022-04-18 14:13 | ED.LOWEXIN ---
HPI - Extremity Injury (Lower) General Chief Complaint: Extremity Injury, Lower Stated Complaint: recent DVT RLE, weakness/pain to RLE Time Seen by Provider: 04/18/22 11:20 Source: patient Mode of arrival: ambulatory Limitations: no limitations History of Present Illness HPI Narrative: 71-year-old male presents today with complaints of right ankle pain and multiple falls. Patient states he was seen here about a month ago diagnosed with a DVT and discharged home. Since then he has had an increase in falls due to pain. Patient was given a air cast but has not been wearing it says it does not do anything. Patient's sister has given him a walking boot but he does not like wearing it because it is too bulky and takes forever to put on. Related Data Home Medications Medication Instructions Recorded Confirmed allopurinol 300 mg tablet 150 mg PO DAILY 03/27/22 04/18/22 aspirin 81 mg tablet,delayed 81 mg PO DAILY 03/27/22 04/18/22 release atorvastatin 40 mg tablet 40 mg PO DAILY 03/27/22 04/18/22 carvedilol 12.5 mg tablet 12.5 mg PO BID 03/27/22 04/18/22 gabapentin 300 mg capsule 300 mg PO TID 03/27/22 04/18/22 glipizide 10 mg tablet 10 mg PO DAILY 03/27/22 04/18/22 hydrochlorothiazide 25 mg tablet 25 mg PO DAILY 03/27/22 04/18/22 multivit with minerals-iron 18 1 tablet PO DAILY 03/27/22 04/18/22 mg-folic ac 400 mcg-vit K 25 mcg tablet (Adults Multivitamin) sodium zirconium cyclosilicate 5 5 g PO DIRECTED 03/27/22 04/18/22 gram oral powder packet (Lokelma) vitamins A,C,M-shbw-mxzyzj 7,160 1 tablet PO DAILY 03/27/22 04/18/22 unit-113 mg-100 unit tablet (Eye Multivitamin) apixaban 5 mg tablet (Eliquis) 5 mg PO DAILY 04/18/22 04/18/22 Allergies Allergy/AdvReac Type Severity Reaction Status Date / Time No Known Allergies Allergy Verified 04/18/22 18:29 Review of Systems Review of Systems: CONSTITUTIONAL: Denies fever, chills, or sweats. EYES: Denies visual changes, redness, or discharge. ENT: Denies rhinorrhea, congestion, sore throat, or otalgia. CARDIOVASCULAR: Denies chest pain, palpitations, or edema. RESPIRATORY: Denies cough or dyspnea. GASTROINTESTINAL: Denies abdominal pain, nausea, vomiting, or diarrhea. GENITOURINARY: Denies dysuria or hematuria. SKIN: Denies rash or itching. MUSCULOSKELETAL: Right ankle pain. Denies back pain, joint pain, or myalgia. NEUROLOGIC: Frequent falls. Denies headache, numbness, dizziness, or weakness. PSYCHIATRIC: Denies anxiety or depression. [facility] Past Medical History Medical History Coronary artery disease Diabetic peripheral neuropathy Essential hypertension Gout History of diverticulitis Hyperlipidemia Kidney stones Third degree heart block Status post pacemaker Type 2 diabetes mellitus Surgical History Surgical History History of appendectomy History of colonoscopy with polypectomy (~2003) Pacemaker (11/2015) Due to third-degree heart block S/P CABG x 1 (~2001) 1 vessel CABG Family History Family History Mother Lung cancer Smoker Father Hematologic malignancy Heart attack Sibling Kidney disease Heart attack Social History Social History Social History: Code status: DNR/DNI Smoking status: Never smoker Alcohol intake: never Substance use: never 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 HEAD: Normocephalic, atraumatic. EYES: PERRLA and EOMI. ENT: Nares clear, no rhinorrhea or epistaxis. Mucous membranes moist. Oropharynx without tonsillar hypertrophy exudate or other lesions. Bilateral TMs pearly meza nonbulging NECK: Supple. No adenopathy or masses.
--- NOTE | 2022-04-18 16:00 | PC.NURSE ---
TRAIN CALLER Catherine notified ED does not have aircasts. Per TRAIN CALLER Catherine, no splint needed at this time.
[2022-04-18 16:44] LABS: Creatine Kinase 68 U/L (55-170)
--- NOTE | 2022-04-18 18:14 | ADMGEN ---
This patient, Desean Orozco, was admitted to [facility] Surg Room 306-01. Patient/family oriented to hospital policies and general routines including ID bracelet, bed and alarms, visiting hours, pain management, procedures, bathroom and other care routines, personal items, smoking policy, room service/diet, and visiting hours. Information on how to activate the Rapid Response Team has been discussed. Patient/Family are encouraged to report perceived risks to care and to ask questions if they do not understand what they are told or what they should do.
--- NOTE | 2022-04-18 18:27 | PM.IMHP ---
H&P: HPI History of Present Illness Date/Time: 04/18/22 18:27 Chief Complaint: Right lower extremity pain and weakness, frequent falls Narrative: 71-year-old male with past medical history significant for coronary artery disease, chronic kidney disease stage 3, hypertension, hyperlipidemia, third-degree heart block status post pacemaker implantation and recent diagnosis of DVT being treated with Eliquis presented to the ER with right lower extremity pain and weakness leading to frequent falls over the last 3-4 weeks. Apparently he was in [place] when he was standing and talking when all the sudden he had sharp shooting pain shoot up his right leg and he felt give out from under him. An x-ray was done that was equivocal for fracture. Few weeks prior to this episode, he had been standing washing dishes when he suddenly passed out. He sustained no trauma at that time. He was admitted March 26 for 3 days of an inpatient stay for right lower extremity pain, DVT, rule out PE. He also has syncopal workup done. Echo was done at that time that showed an EF of 40-45%, grade 2 diastolic dysfunction, mild pulmonary hypertension with associated global hypokinesis. Orthopedic surgery was consulted at that time and diagnosed with a right ankle sprain and gave him a stirrup splint to be used and to follow-up outpatient. He was discharged March 29 to home. However, since that time, he states he has had significant right lower extremity pain, frequent falls due to the pain and concern for continued swelling and tenderness of the right lower extremity. He has not had any issues taking his Eliquis. He denies chest pain or shortness of breath. No fevers or chills. No nausea vomiting or diarrhea. No other symptoms at this time. He is hoping he can go to a rehab facility until he is strong enough to not have frequent falls. He lives alone. Review of Systems Review of Systems: Twelve point review of systems was reviewed and is negative except as noted in the HPI [facility] Past Medical History Medical History Coronary artery disease Diabetic peripheral neuropathy Essential hypertension Gout History of diverticulitis Hyperlipidemia Kidney stones Third degree heart block Status post pacemaker Type 2 diabetes mellitus Surgical History Surgical History History of appendectomy History of colonoscopy with polypectomy (~2003) Pacemaker (11/2015) Due to third-degree heart block S/P CABG x 1 (~2001) 1 vessel CABG Family History Family History Mother Lung cancer Smoker Father Hematologic malignancy Heart attack Sibling Kidney disease Heart attack Social History Social History Social History: Code status: DNR/DNI Smoking status: Never smoker Alcohol intake: never Substance use: never 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 Spiritual care concerns: No Meds Home Medications and Allergies Home Medications Medication Instructions Recorded Confirmed Type allopurinol 300 mg tablet 150 mg PO DAILY 03/27/22 04/18/22 History aspirin 81 mg tablet,delayed 81 mg PO DAILY 03/27/22 04/18/22 History release atorvastatin 40 mg tablet 40 mg PO DAILY 03/27/22 04/18/22 History carvedilol 12.5 mg tablet 12.5 mg PO BID 03/27/22 04/18/22 History gabapentin 300 mg capsule 300 mg PO TID 03/27/22 04/18/22 History glipizide 10 mg tablet 10 mg PO DAILY 03/27/22 04/18/22 History hydrochlorothiazide 25 mg tablet 25 mg PO DAILY 03/27/22 04/18/22 History multivit with minerals-iron 18 1 tablet PO DAILY 03/27/22 04/18/22 History mg-folic ac 400 mcg-vit K 25 mcg tablet (Adults Multivitamin) sodium zirconium cyclosilicate 5 5 g PO DIRECTED 03/27/22 04/18/22 History gram oral powd
[2022-04-18 19:05] LABS: Hemoglobin A1C 8.7 % (<5.7)
[2022-04-18 20:33] LABS: Glucose Point of Care 307 mg/dl (65-105)
[2022-04-19 05:53] VITALS: BP 133/65; PULSE 76; RESP 18; TEMP 36.7; O2SAT 97
[2022-04-19 07:41] LABS: Basophils Percent Auto 0.2 % (0.2-1.2); Eosinophils Absolute Auto 0.1 K/mm3 (0-0.3); Eosinophils Percent Auto 0.6 % (0-4.4); Hematocrit 36.9 % (42.0-52.0); Hemoglobin 11.8 g/dL (14.0-18.0); Immature Granulocyte Absolute 0.04 K/mm3 (0.00-0.031); Immature Granulocyte Percent A 0.4 % (0-0.5); Lymphocytes Absolute Auto 2.47 K/mm3 (0.9-3.2); Lymphocytes Percent Auto 24.6 % (18.3-44.2); Mean Corpuscular Hemoglobin 28.6 pg (26-34); Mean Corpuscular Volume 89.6 fl (80-100); Mean Platelet Volume 10.3 fl (7.4-10.4); Monocytes Absolute Auto 0.7 K/mm3 (0.1-0.6); Monocytes Percent Auto 7.2 % (2.6-8.5); Neutrophils Absolute Auto 6.7 K/mm3 (1.3-6.7); Platelet Count Result 255 k/mm3 (150-375); Red Blood Count 4.12 M/mm3 (4.6-6.20); Red Cell Distribution Width 14.5 % (11.5-14.5); White Blood Count 10.1 K/mm3 (4.5-10.0)
[2022-04-19 07:58] LABS: Alanine Aminotransferase 16 U/L (6-50); Albumin Level 3.4 g/dL (3.5-5.1); Alkaline Phosphatase 110 U/L (38-126); Anion Gap 8 mmol/L (8-16); Aspartate Amino Transferase 23 U/L (17-59); Bilirubin,Total 1.1 mg/dL (0.2-1.3); Blood Urea Nitrogen 54 mg/dL (9-20); Calcium 8.7 mg/dL (8.4-10.2); Carbon Dioxide 30 mmol/L (22-30); Chloride 97 mmol/L (98-107); Estimated CRCL calculation 22 ml/min; Estimated Glomerular Filt Rate 26; Glucose 248 mg/dL (65-110); Potassium 3.4 mmol/L (3.4-5.0); Sodium 135 mmol/L (137-145)
[2022-04-19 07:59] LABS: Glucose Point of Care 243 mg/dl (65-105)
[2022-04-19] MEDS: INSULIN ASPART (*BKC) 100 UNITS/ML SUB-Q ×3 (08:18→17:09)
[2022-04-19 08:19] VITALS: PULSE 78
[2022-04-19] MEDS: ASPIRIN 81 MG ENTERIC TABLET PO (08:19)
[2022-04-19] MEDS: allopurinoL 150 MG TABLET PO (08:19)
[2022-04-19] MEDS: MULTIVITAMINS /C LUTEIN (CENTRUM SILVER) TABLET *BKC 1 TAB PO (08:19)
[2022-04-19] MEDS: carvediloL 12.5 MG TABLET PO ×2 (08:19→20:18)
[2022-04-19] MEDS: GABAPENTIN 300 MG CAPSULE PO ×3 (08:19→17:09)
[2022-04-19] MEDS: ATORVASTATIN 40 MG TABLET PO (08:19)
[2022-04-19] MEDS: OPTI-GEN TAB 1 TABLET PO (08:19)
[2022-04-19] MEDS: hydroCHLOROthiazide 25 MG TABLET PO (08:19)
[2022-04-19] MEDS: APIXABAN 2.5 MG TABLET PO ×2 (08:19→17:09)
--- NOTE | 2022-04-19 09:31 | PM.CNOR ---
Assessment and Plan Assessment and plan (1) Right knee pain: Code(s): M25.561 - Pain in right knee <MELISA Baird - Last Filed: 04/19/22 12:38> Status: Acute <MELISA Baird - Last Filed: 04/19/22 12:38> Assessment and Plan: Moderate right knee joint effusion noted on exam. Patient does have pain with AROM and PROM of the right knee. Difficulty with pain with ambulation per patient report. Recommended radiographs of the right knee for further evaluation. Patient may benefit from aspiration/injection of the knee pending results. Will continue to follow. <MELISA Baidr - Last Filed: 04/19/22 12:38> (2) Closed right fibular fracture: Qualifiers: Encounter type: subsequent encounter Fibula location: distal Fracture healing: with nonunion Fracture morphology: unspecified fracture morphology Qualified Code(s): S82.831K - Other fracture of upper and lower end of right fibula, subsequent encounter for closed fracture with nonunion <GUY BairdP - Last Filed: 04/19/22 12:38> Code(s): S82.401A - Unspecified fracture of shaft of right fibula, initial encounter for closed fracture <MELISA Baird - Last Filed: 04/19/22 12:38> Status: Acute <MELISA Baird - Last Filed: 04/19/22 12:38> Assessment and Plan: 4 weeks s/p initial injury. New radiographs today reveal an oblique nondisplaced distal fibular metadiaphyseal fracture and an osteochondral defect medial margin of the talar dome. Discussed fracture type, condition, nature, etiology and course of natural history. Conservative treatment options reviewed. No surgical intervention indicated at this time. Patient was previously seen by Dr. Wolfe during his last hospitalization and then at follow up by Dr. Wolfe's REGISTRY NP on 04/09. He has been in an ankle stirrup which he has been noncompliant with due to pain. Patient reports ankle pain has improved over the last one day. He would benefit from consistent use of ankle stirrup vs. fx boot. Would suspect healing at 6 weeks. May follow up with our office or as scheduled with Dr. Wolfe. Early motion recommended. Ice. Elevation. <MELISA Baird - Last Filed: 04/19/22 12:38> Assessment and Plan: Patient seen and examined. Right ankle distal fibular fracture as well as right knee effusion. Plan for aspiration. <José Manuel Son MD - Last Filed: 04/19/22 12:57> History of Present Illness HPI Consult date: 04/19/22 <MELISA Baird - Last Filed: 04/19/22 12:38> 04/19/22 <José Manuel Son MD - Last Filed: 04/19/22 12:57> Consult reason: fracture and other (knee pain ) <MELISA Baird - Last Filed: 04/19/22 12:38> Chief complaint: Right knee effusion <MELISA Baird - Last Filed: 04/19/22 12:38> Narrative: 71 year old male with a history of right ankle fracture and DVT returns to [facility] for recurrent pain and weakness. He was previously seen in the inpatient setting for consult by Dr. Wolfe and followed up in the outpatient setting with Dr. Wolfe's REGISTRY NP. He was found to have a nondisplaced distal fibula fracture and put into an ankle stirrup. He has been noncompliant with the ankle stirrup as he does not feel it is beneficial. Orthopedic consult requested for further evaluation of continued ankle pain. <MELISA Baird - Last Filed: 04/19/22 12:38> Review of Systems Constitutional: Constitutional: Reports no additional constitutional complaints, Denies chills, Denies fatigue, Denies fever(s), Denies headache(s) and Reports weakness <MELISA Baird - Last Filed: 04/19/22 12:38> Eyes: Eyes: Denies change in vision <MELISA Baird - Last Filed: 04/19/22 12:38> ENT: Reports Normal hearing present and Denies headache(s) <MELISA Baird - Last Filed: 04/19/22 12:38> Cardiovascular: Cardiovascular: Denies chest pain and Denies dyspnea <Wendy Lee, LICENSE DISTRIBUTOR - Last Filed: 04/19/22 1
[2022-04-19 11:49] LABS: Glucose Point of Care 307 mg/dl (65-105)
--- NOTE | 2022-04-19 12:38 | PM.OP ---
Procedure Note - Brief Procedure Note - Brief Date of procedure: 04/19/22 Pre-op diagnosis: Right knee effusion right knee effusion Post-op diagnosis: Same Procedure performed: Right Knee Aspiration/Injection Description of procedure: Right knee aspiration performed under sterile conditions. 75mL of dark red blood aspirated from the right knee. Injection performed. Tolerated well. MIHAELA wrap applied. Anesthesia: local Surgeon: MEILSA Baird Estimated blood loss (mL): 0 Tourniquet time (min): 0 IV fluids (mL): 0 Urine output (mL): 0 Drains: No Packing: No Pathology: None sent Complications: No immediate complications Condition: Stable Disposition: Floor Joint Aspiration/Injection Pre-Procedure Pre-procedure care: Consent was obtained, Procedures/risks were explained, Questions were answered, Correct patient identified and Correct side and site confirmed Position Position: Laying Site Prepped Technique: povidone-iodine and alcohol Anesthetic: lidocaine 1% plain 22 gauge Injection Details right arthrocentesis major joint Knee joint Manual palpation Fluid: Sanguinous Fluid Withdrawn (mL): 75 Sterile Dressing Pressure Improvement by site: [place] Procedure Patient tolerated the procedure well?: Tolerated procedure well
--- NOTE | 2022-04-19 13:55 | PM.IMPN ---
Progress Note: A&P Assessment and Plan (1) Deep vein thrombosis (DVT) of distal vein of right lower extremity: Qualifiers: Chronicity: acute Qualified Code(s): I82.4Z1 - Acute embolism and thrombosis of unspecified deep veins of right distal lower extremity Code(s): I82.4Z1 - Acute embolism and thrombosis of unspecified deep veins of right distal lower extremity Status: Acute Assessment and Plan: Continue Eliquis (2) Type 2 diabetes mellitus with hyperglycemia, without long-term current use of insulin: Code(s): E11.65 - Type 2 diabetes mellitus with hyperglycemia Status: Acute Assessment and Plan: Accu-Cheks with sliding scale insulin (3) Closed right fibular fracture: Qualifiers: Encounter type: subsequent encounter Fibula location: distal Fracture healing: with nonunion Fracture morphology: unspecified fracture morphology Qualified Code(s): S82.831K - Other fracture of upper and lower end of right fibula, subsequent encounter for closed fracture with nonunion Code(s): S82.401A - Unspecified fracture of shaft of right fibula, initial encounter for closed fracture Status: Acute Assessment and Plan: Orthopedic surgery was consulted and noted a right knee joint effusion that was aspirated and injected with cortisone, he is 4 weeks out from his fibular fracture and so they recommended early mobilization, ice, elevation, no surgical intervention needed. There also like him to have consistent use of an ankle stirrup versus a fracture boot. Anticipate healing within 6 weeks and recommend outpatient follow-up with Dr. Wolfe. (4) Acute kidney injury superimposed on chronic kidney disease: Code(s): N17.9 - Acute kidney failure, unspecified; N18.9 - Chronic kidney disease, unspecified Status: Acute Assessment and Plan: Creatinine improved to 2.5 down from 2.9, baseline around 2.1, will monitor on p.o. fluids, recheck creatinine tomorrow Subjective Date/time seen: 04/19/22 13:55 Interval history: Patient seen up to the side of the bed eating lunch, no complaints. No events noted overnight. Patient did have his knee joint aspirated and injected with cortisone. He tolerated this procedure well. States his pain is stable at this time. He denies chest pain or shortness of breath. No nausea vomiting diarrhea. No fevers or chills. He is having trouble deciding which rehab he wants to go to, hospice spiritual care coordinator has left him with a list. Review of Systems Review of Systems: Twelve point review of systems was reviewed and is negative except as noted in the HPI Exam Narrative: General: Patient resting comfortably in bed, no acute distress HEENT: Atraumatic, normocephalic, mucous membranes moist CV: Regular rate and rhythm, S1, S2, no murmurs rubs or gallops noted Lungs: Clear to auscultation bilaterally, no rales or crackles noted, no wheezes, good air entry Abdomen: Soft, nontender, nondistended Extremities: Normal to inspection, swelling and tenderness to palpation of right lower extremity Skin: No rashes noted, no lesions or wounds seen Psych: Euthymic, normal affect Neuro: Cranial nerves 2-12 grossly intact, strength 5/5 upper and lower extremities noted Objective Data Vital Signs Vital Signs: Vital Signs - 24 hr 04/18/22 15:13 04/18/22 17:47 04/18/22 21:51 Temperature 97.7 F Pulse Rate 75 71 74 Respiratory Rate 18 16 17 Blood Pressure 132/66 119/67 147/56 H Pulse Oximetry 98 98 95 Oxygen Delivery 04/18/22 20:00 04/18/22 22:55 04/19/22 05:53 Temperature 98.0 F Pulse Rate 76 Respiratory Rate 18 Blood Pressure 133/65 Pulse Oximetry 95 97 Oxygen Delivery Room Air Room Air 04/19/22 08:19 04/19/22 09:35 04/19/22 08:20 Temperature Pulse Rate 78 Respiratory Rate Blood Pressure Pulse Oximetry Oxygen Delivery Room Air Room Air Intake/Output Intake/Output: Intake & Output
[2022-04-19 14:00] VITALS: BP 128/52; PULSE 70; RESP 16; TEMP 36.1; O2SAT 95
[2022-04-19 14:55] VITALS: BMI 25.4
[2022-04-19 16:45] LABS: Glucose Point of Care 387 mg/dl (65-105)
[2022-04-19 20:18] VITALS: PULSE 74
[2022-04-19 21:35] LABS: Glucose Point of Care 495 mg/dl (65-105)
[2022-04-19 21:49] VITALS: BP 131/70; PULSE 82; RESP 18; TEMP 36.5; O2SAT 98
[2022-04-19] MEDS: INSULIN ASPART (*BKC) 100 UNITS/ML 10 UNITS SUB-Q (21:55)
[2022-04-20 01:11] LABS: Glucose Point of Care 411 mg/dl (65-105)
[2022-04-20] MEDS: INSULIN ASPART (*BKC) 100 UNITS/ML 18 UNITS SUB-Q (01:31)
[2022-04-20 04:22] LABS: Glucose Point of Care 253 mg/dl (65-105)
[2022-04-20 05:29] VITALS: BP 110/63; PULSE 64; RESP 18; TEMP 36.3; O2SAT 91
[2022-04-20 06:41] LABS: Basophils Percent Auto 0.1 % (0.2-1.2); Hematocrit 37.2 % (42.0-52.0); Hemoglobin 12.5 g/dL (14.0-18.0); Immature Granulocyte Absolute 0.06 K/mm3 (0.00-0.031); Immature Granulocyte Percent A 0.5 % (0-0.5); Lymphocytes Absolute Auto 1.44 K/mm3 (0.9-3.2); Lymphocytes Percent Auto 11.7 % (18.3-44.2); Mean Corpuscular HGB Conc 33.6 g/dl (32-36); Mean Corpuscular Hemoglobin 29.3 pg (26-34); Mean Corpuscular Volume 87.1 fl (80-100); Monocytes Absolute Auto 0.5 K/mm3 (0.1-0.6); Monocytes Percent Auto 4.2 % (2.6-8.5); Neutrophils Absolute Auto 10.3 K/mm3 (1.3-6.7); Neutrophils Percent Auto 83.5 % (45.5-73.1); Platelet Count Result 271 k/mm3 (150-375); Red Blood Count 4.27 M/mm3 (4.6-6.20); Red Cell Distribution Width 14.2 % (11.5-14.5); White Blood Count 12.3 K/mm3 (4.5-10.0)
[2022-04-20 06:53] LABS: Alanine Aminotransferase 22 U/L (6-50); Albumin Level 3.6 g/dL (3.5-5.1); Alkaline Phosphatase 119 U/L (38-126); Anion Gap 8 mmol/L (8-16); Aspartate Amino Transferase 25 U/L (17-59); Bilirubin,Total 0.9 mg/dL (0.2-1.3); Blood Urea Nitrogen 65 mg/dL (9-20); Calcium 9.1 mg/dL (8.4-10.2); Carbon Dioxide 31 mmol/L (22-30); Chloride 95 mmol/L (98-107); Estimated CRCL calculation 23 ml/min; Estimated Glomerular Filt Rate 27; Glucose 233 mg/dL (65-110); Potassium 3.7 mmol/L (3.4-5.0); Sodium 134 mmol/L (137-145)
[2022-04-20 07:35] LABS: Glucose Point of Care 276 mg/dl (65-105)
[2022-04-20] MEDS: OPTI-GEN TAB 1 TABLET PO (08:09)
[2022-04-20] MEDS: GABAPENTIN 300 MG CAPSULE PO ×3 (08:09→16:57)
[2022-04-20] MEDS: INSULIN ASPART (*BKC) 100 UNITS/ML SUB-Q ×4 (08:09→16:58)
[2022-04-20] MEDS: MULTIVITAMINS /C LUTEIN (CENTRUM SILVER) TABLET *BKC 1 TAB PO (08:09)
[2022-04-20] MEDS: ATORVASTATIN 40 MG TABLET PO (08:09)
[2022-04-20 08:10] VITALS: PULSE 70
[2022-04-20] MEDS: ASPIRIN 81 MG ENTERIC TABLET PO (08:10)
[2022-04-20] MEDS: APIXABAN 2.5 MG TABLET PO ×2 (08:10→16:57)
[2022-04-20] MEDS: allopurinoL 150 MG TABLET PO (08:10)
[2022-04-20] MEDS: carvediloL 12.5 MG TABLET PO ×2 (08:10→20:16)
[2022-04-20] MEDS: hydroCHLOROthiazide 25 MG TABLET PO (08:10)
--- NOTE | 2022-04-20 10:28 | PM.PNORT ---
Progress Note: A&P Assessment and Plan (1) Knee effusion, right: Code(s): M25.461 - Effusion, right knee Status: Acute Assessment and Plan: aspiration yesterday with serosanguineous fluid. Suspect traumatic effusion, patient on Eliquis. Pain much improved today. Near full range of motion. Weight-bearing better. Minimal pain with ambulation. Continue PT/OT with weight-bearing as tolerated. Okay to discharge from orthopedic standpoint. Follow up as needed. (2) Closed right fibular fracture: Qualifiers: Encounter type: subsequent encounter Fibula location: distal Fracture healing: with routine healing Fracture morphology: unspecified fracture morphology Qualified Code(s): S82.831D - Other fracture of upper and lower end of right fibula, subsequent encounter for closed fracture with routine healing Code(s): S82.401A - Unspecified fracture of shaft of right fibula, initial encounter for closed fracture Status: Acute Assessment and Plan: Minimal pain right ankle. No problems with weight-bearing. Continue PT/ OT. Okay to discharge from orthopedic. Subjective Subjective Date/Time Seen: 04/20/22 10:28 Principal diagnosis: right knee effusion, right ankle fracture Interval history: aspiration of right knee yesterday. Patient states pain significantly improved. Minimal complaints at ankle. Exam Const: General: comfortable and no acute distress HENMT: Mouth: Yes moist mucous membranes Eyes: General: appearance normal, both eyes and all related structures Neck: Neck: supple and no JVD Resp: Effort & Inspection: normal respiratory effort Cardio: Rate: regular rate Rhythm: regular rhythm GI: Inspection: non-distended GI Palp: Yes Soft to palpation and No Tenderness to palpation present (GI) Neuro: General: gait normal Cognition (Neuro): normal cognition Speech: normal speech Extrem: Right lower extremity: knee Details: abnormal to inspection (joint effusion - Improved), tenderness Location: of the patella, of the medial joint line and of the lateral joint line, swelling ( minimal knee joint effusion ), abnormal ROM Details: pain with active ROM during Details: in extension and in flexion, pain with passive ROM during Details: in extension and in flexion and with range as follows (AROM: 10-120) and crepitus Location: at the kneww and at the patella, lower leg Details: normal to inspection; no tenderness and no localized swelling, ankle Details: tenderness Location: of the lateral malleolus (minimal) and normal ROM and foot Details: normal capillary refill, no edema, vascular exam Details: dorsalis pedis pulse present and motor-sensory exam Details: two point discrimination normal and light-touch normal; no unusual warmth, no ecchymosis and no crepitus Psych: Mental Status: mental status grossly normal Affect: normal affect Objective Data Vital Signs Vital Signs: Vital Signs - 24 hr 04/19/22 14:00 04/19/22 20:18 04/19/22 21:49 Temperature 97.0 F L 97.7 F Pulse Rate 70 74 82 Respiratory Rate 16 18 Blood Pressure 128/52 L 131/70 Pulse Oximetry 95 98 Oxygen Delivery 04/19/22 20:00 04/20/22 05:29 04/20/22 08:10 Temperature 97.4 F L Pulse Rate 64 70 Respiratory Rate 18 Blood Pressure 110/63 Pulse Oximetry 91 Oxygen Delivery Room Air 04/20/22 08:25 Temperature Pulse Rate Respiratory Rate Blood Pressure Pulse Oximetry Oxygen Delivery Room Air Intake/Output Intake/Output: Intake & Output 04/17/22 04/18/22 04/19/22 04/20/22 23:59 23:59 23:59 23:59 Intake Total 1280 450 Output Total 1030 300 Balance 250 150 Meds/Results Medications: Active Medications Generic Name Dose Route Start Last Admin Trade Name Freq PRN Reason Stop Dose Admin Acetaminophen 650 mg 04/18/22 18:39 Acetaminophen 325 Mg Tablet PO Q6H PRN Mild Pain (1-3) or Fever Allopurinol 150 mg 04/19/22 09:00 04/20/22
[2022-04-20 11:40] LABS: Glucose Point of Care 432 mg/dl (65-105)
--- NOTE | 2022-04-20 12:27 | PM.IMPN ---
Progress Note: A&P Assessment and Plan (1) Deep vein thrombosis (DVT) of distal vein of right lower extremity: Qualifiers: Chronicity: acute Qualified Code(s): I82.4Z1 - Acute embolism and thrombosis of unspecified deep veins of right distal lower extremity Code(s): I82.4Z1 - Acute embolism and thrombosis of unspecified deep veins of right distal lower extremity Status: Acute Assessment and Plan: Continue Eliquis (2) Type 2 diabetes mellitus with hyperglycemia, without long-term current use of insulin: Code(s): E11.65 - Type 2 diabetes mellitus with hyperglycemia Status: Acute Assessment and Plan: Accu-Cheks with sliding scale insulin, A1c of 8.7, restart glipizide (3) Closed right fibular fracture: Qualifiers: Encounter type: subsequent encounter Fibula location: distal Fracture healing: with routine healing Fracture morphology: unspecified fracture morphology Qualified Code(s): S82.831D - Other fracture of upper and lower end of right fibula, subsequent encounter for closed fracture with routine healing Code(s): S82.401A - Unspecified fracture of shaft of right fibula, initial encounter for closed fracture Status: Acute Assessment and Plan: Orthopedic surgery was consulted and noted a right knee joint effusion that was aspirated and injected with cortisone, he is 4 weeks out from his fibular fracture and so they recommended early mobilization, ice, elevation, no surgical intervention needed. There also like him to have consistent use of an ankle stirrup versus a fracture boot. Anticipate healing within 6 weeks and recommend outpatient follow-up with Dr. Wolfe. (4) Acute kidney injury superimposed on chronic kidney disease: Code(s): N17.9 - Acute kidney failure, unspecified; N18.9 - Chronic kidney disease, unspecified Status: Acute Assessment and Plan: continues to improve off IV fluids, down to 2.4 today Subjective Date/time seen: 04/20/22 12:27 Interval history: Patient resting comfortably in bed, no complaints. No recent events. States he feels significantly better than yesterday. His knee has much decrease in pain as well as increase in mobility. He is still not able to bear weight on the fractured side, but otherwise is eating and drinking normally. No chest pain shortness a breath. No fevers or chills. No nausea vomiting diarrhea. Awaiting bed in rehab, pending insurance approval. Review of Systems Review of Systems: Twelve point review of systems was reviewed and is negative except as noted in the HPI Exam Narrative: General: Patient resting comfortably in bed, no acute distress HEENT: Atraumatic, normocephalic, mucous membranes moist CV: Regular rate and rhythm, S1, S2, no murmurs rubs or gallops noted Lungs: Clear to auscultation bilaterally, no rales or crackles noted, no wheezes, good air entry Abdomen: Soft, nontender, nondistended Extremities: Normal to inspection, swelling and tenderness to palpation of right lower extremity Skin: No rashes noted, no lesions or wounds seen Psych: Euthymic, normal affect Neuro: Cranial nerves 2-12 grossly intact, strength 5/5 upper and lower extremities noted Objective Data Vital Signs Vital Signs: Vital Signs - 24 hr 04/19/22 14:00 04/19/22 20:18 04/19/22 21:49 Temperature 97.0 F L 97.7 F Pulse Rate 70 74 82 Respiratory Rate 16 18 Blood Pressure 128/52 L 131/70 Pulse Oximetry 95 98 Oxygen Delivery 04/19/22 20:00 04/20/22 05:29 04/20/22 08:10 Temperature 97.4 F L Pulse Rate 64 70 Respiratory Rate 18 Blood Pressure 110/63 Pulse Oximetry 91 Oxygen Delivery Room Air 04/20/22 08:25 Temperature Pulse Rate Respiratory Rate Blood Pressure Pulse Oximetry Oxygen Delivery Room Air Intake/Output Intake/Output: Intake & Output 04/17/22 04/18/22 04/19/22 04/20/22 23:59 23:59 23:59 23:59 Intake Total 1280 810 Ou
[2022-04-20 12:46] LABS: Hemoglobin A1C 8.9 % (<5.7)
[2022-04-20 12:47] LABS: Glucose Point of Care 363 mg/dl (65-105)
[2022-04-20 14:00] VITALS: PULSE 75; RESP 20; TEMP 36.2; O2SAT 95
[2022-04-20] MEDS: INSULIN ASPART (*BKC) 100 UNITS/ML 8 UNITS SUB-Q (16:57)
[2022-04-20 16:58] LABS: Glucose Point of Care 408 mg/dl (65-105)
[2022-04-20 20:16] VITALS: PULSE 72
[2022-04-20] MEDS: INSULIN GLARGINE (*BKC) 100 UNITS/ML 11 UNITS SUB-Q (20:17)
[2022-04-20] MEDS: INSULIN ASPART (*BKC) 100 UNITS/ML 16 UNITS SUB-Q (21:23)
[2022-04-20 21:46] LABS: Glucose Point of Care 412 mg/dl (65-105)
[2022-04-20 22:00] VITALS: BP 143/77; PULSE 64; RESP 18; TEMP 36.1; O2SAT 95
[2022-04-21 00:56] LABS: Glucose Point of Care 143 mg/dl (65-105)
[2022-04-21 06:00] VITALS: BP 108/50; PULSE 63; RESP 16; TEMP 36; O2SAT 94
[2022-04-21 06:51] LABS: Glucose Point of Care 271 mg/dl (65-105)
[2022-04-21 08:21] LABS: Glucose Point of Care 319 mg/dl (65-105)
[2022-04-21 08:44] VITALS: PULSE 70
[2022-04-21] MEDS: OPTI-GEN TAB 1 TABLET PO (08:44)
[2022-04-21] MEDS: allopurinoL 150 MG TABLET PO (08:44)
[2022-04-21] MEDS: glipiZIDE 5 MG TABLET 10 MG PO (08:44)
[2022-04-21] MEDS: GABAPENTIN 300 MG CAPSULE PO ×3 (08:44→16:37)
[2022-04-21] MEDS: INSULIN ASPART (*BKC) 100 UNITS/ML SUB-Q ×3 (08:44→16:36)
[2022-04-21] MEDS: APIXABAN 2.5 MG TABLET PO ×2 (08:44→16:37)
[2022-04-21] MEDS: MULTIVITAMINS /C LUTEIN (CENTRUM SILVER) TABLET *BKC 1 TAB PO (08:44)
[2022-04-21] MEDS: ATORVASTATIN 40 MG TABLET PO (08:44)
[2022-04-21] MEDS: hydroCHLOROthiazide 25 MG TABLET PO (08:44)
[2022-04-21] MEDS: carvediloL 12.5 MG TABLET PO ×2 (08:44→20:46)
[2022-04-21] MEDS: ASPIRIN 81 MG ENTERIC TABLET PO (08:44)
--- NOTE | 2022-04-21 11:35 | PM.IMPN ---
Progress Note: A&P Assessment and Plan (1) Deep vein thrombosis (DVT) of distal vein of right lower extremity: Qualifiers: Chronicity: acute Qualified Code(s): I82.4Z1 - Acute embolism and thrombosis of unspecified deep veins of right distal lower extremity Code(s): I82.4Z1 - Acute embolism and thrombosis of unspecified deep veins of right distal lower extremity Status: Acute Assessment and Plan: Continue Eliquis (2) Type 2 diabetes mellitus with hyperglycemia, without long-term current use of insulin: Code(s): E11.65 - Type 2 diabetes mellitus with hyperglycemia Status: Acute Assessment and Plan: Accu-Cheks with sliding scale insulin, A1c of 8.7, uncontrolled, Lantus 11 units started last night, glucose still over 300 today, will increase to [address] on the intensive sliding scale (3) Closed right fibular fracture: Qualifiers: Encounter type: subsequent encounter Fibula location: distal Fracture healing: with routine healing Fracture morphology: unspecified fracture morphology Qualified Code(s): S82.831D - Other fracture of upper and lower end of right fibula, subsequent encounter for closed fracture with routine healing Code(s): S82.401A - Unspecified fracture of shaft of right fibula, initial encounter for closed fracture Status: Acute Assessment and Plan: Orthopedic surgery was consulted and noted a right knee joint effusion that was aspirated and injected with cortisone, he is 4 weeks out from his fibular fracture and so they recommended early mobilization, ice, elevation, no surgical intervention needed. There also like him to have consistent use of an ankle stirrup versus a fracture boot. Anticipate healing within 6 weeks and recommend outpatient follow-up with Dr. Wolfe. (4) Acute kidney injury superimposed on chronic kidney disease: Code(s): N17.9 - Acute kidney failure, unspecified; N18.9 - Chronic kidney disease, unspecified Status: Acute Assessment and Plan: continues to improve off IV fluids, down to 2.4 yesterday, repeat pending today Subjective Date/time seen: 04/21/22 11:35 Interval history: Patient resting comfortably. No complaints. No events noted overnight. No fevers or chills. Review of Systems Review of Systems: Twelve point review of systems was reviewed and is negative except as noted in the HPI Exam Narrative: General: Patient resting comfortably in bed, no acute distress HEENT: Atraumatic, normocephalic, mucous membranes moist CV: Regular rate and rhythm, S1, S2, no murmurs rubs or gallops noted Lungs: Clear to auscultation bilaterally, no rales or crackles noted, no wheezes, good air entry Abdomen: Soft, nontender, nondistended Extremities: Normal to inspection, no edema noted Skin: No rashes noted, no lesions or wounds seen Psych: Euthymic, normal affect Neuro: Cranial nerves 2-12 grossly intact, strength 5/5 upper and lower extremities noted Objective Data Vital Signs Vital Signs: Vital Signs - 24 hr 04/20/22 14:00 04/20/22 20:16 04/20/22 20:00 Temperature 97.2 F L Pulse Rate 75 72 Respiratory Rate 20 Blood Pressure Pulse Oximetry 95 Oxygen Delivery Room Air 04/20/22 22:00 04/21/22 06:00 04/21/22 08:44 Temperature 96.9 F L 96.8 F L Pulse Rate 64 63 70 Respiratory Rate 18 16 Blood Pressure 143/77 H 108/50 L Pulse Oximetry 95 94 Oxygen Delivery 04/21/22 08:40 Temperature Pulse Rate Respiratory Rate Blood Pressure Pulse Oximetry Oxygen Delivery Room Air Intake/Output Intake/Output: Intake & Output 04/18/22 04/19/22 04/20/22 04/21/22 23:59 23:59 23:59 23:59 Intake Total 1280 1530 550 Output Total 7534 490 9108 Balance 250 730 -950 Meds/Results Medications: Active Medications Generic Name Dose Route Start Last Admin Trade Name Freq PRN Reason Stop Dose Admin Acetaminophen 650 mg 04/18/22 18:39
[2022-04-21 11:58] LABS: Glucose Point of Care 386 mg/dl (65-105)
[2022-04-21 12:26] LABS: Anion Gap 9 mmol/L (8-16); Blood Urea Nitrogen 79 mg/dL (9-20); Calcium 8.7 mg/dL (8.4-10.2); Carbon Dioxide 28 mmol/L (22-30); Chloride 97 mmol/L (98-107); Estimated CRCL calculation 23 ml/min; Estimated Glomerular Filt Rate 27; Glucose 352 mg/dL (65-110); Potassium 3.7 mmol/L (3.4-5.0); Sodium 134 mmol/L (137-145)
[2022-04-21 14:00] VITALS: PULSE 61; RESP 20; TEMP 36.4; O2SAT 98
[2022-04-21 16:22] LABS: Glucose Point of Care 226 mg/dl (65-105)
[2022-04-21 20:00] VITALS: BP 115/52; PULSE 69; RESP 20; TEMP 36.4; O2SAT 98
[2022-04-21] MEDS: INSULIN ASPART (*BKC) 100 UNITS/ML 10 UNITS SUB-Q (20:45)
[2022-04-21 20:46] VITALS: PULSE 69
[2022-04-21] MEDS: INSULIN GLARGINE (*BKC) 100 UNITS/ML 14 UNITS SUB-Q (20:46)
[2022-04-22 04:54] LABS: Glucose Point of Care 431 mg/dl (65-105)
[2022-04-22 06:00] VITALS: BP 131/49; PULSE 67; RESP 17; TEMP 36.4; O2SAT 97
[2022-04-22 07:30] LABS: Glucose Point of Care 262 mg/dl (65-105)
[2022-04-22 08:21] VITALS: PULSE 70
[2022-04-22] MEDS: allopurinoL 150 MG TABLET PO (08:21)
[2022-04-22] MEDS: APIXABAN 2.5 MG TABLET PO (08:21)
[2022-04-22] MEDS: OPTI-GEN TAB 1 TABLET PO (08:21)
[2022-04-22] MEDS: ASPIRIN 81 MG ENTERIC TABLET PO (08:21)
[2022-04-22] MEDS: carvediloL 12.5 MG TABLET PO (08:21)
[2022-04-22] MEDS: MULTIVITAMINS /C LUTEIN (CENTRUM SILVER) TABLET *BKC 1 TAB PO (08:21)
[2022-04-22] MEDS: INSULIN ASPART (*BKC) 100 UNITS/ML SUB-Q ×2 (08:21→11:50)
[2022-04-22] MEDS: GABAPENTIN 300 MG CAPSULE PO ×2 (08:21→11:50)
[2022-04-22] MEDS: ATORVASTATIN 40 MG TABLET PO (08:22)
[2022-04-22] MEDS: hydroCHLOROthiazide 25 MG TABLET PO (08:22)
[2022-04-22 11:15] LABS: Glucose Point of Care 263 mg/dl (65-105)
[2022-04-22 12:10] LABS: EDCOVIDSCREEN Negative (Negative)
--- NOTE | 2022-04-22 16:20 | PM.DS ---
DS: Admitting Diagnosis Discharge Date 04/22/22 Admitting Diagnosis Frequent falls, right lower extremity fibular fracture DS: Discharge Diagnosis Discharge Diagnosis (1) Deep vein thrombosis (DVT) of distal vein of right lower extremity: Qualifiers: Chronicity: acute Qualified Code(s): I82.4Z1 - Acute embolism and thrombosis of unspecified deep veins of right distal lower extremity Code(s): I82.4Z1 - Acute embolism and thrombosis of unspecified deep veins of right distal lower extremity Status: Acute Assessment and Plan: Continue Eliquis (2) Type 2 diabetes mellitus with hyperglycemia, without long-term current use of insulin: Code(s): E11.65 - Type 2 diabetes mellitus with hyperglycemia Status: Acute Assessment and Plan: Accu-Cheks with sliding scale insulin, A1c of 8.7, uncontrolled, Lantus 11 units started last night, glucose still over 300 today, will increase to [address] on the intensive sliding scale (3) Closed right fibular fracture: Qualifiers: Encounter type: subsequent encounter Fibula location: distal Fracture healing: with routine healing Fracture morphology: unspecified fracture morphology Qualified Code(s): S82.831D - Other fracture of upper and lower end of right fibula, subsequent encounter for closed fracture with routine healing Code(s): S82.401A - Unspecified fracture of shaft of right fibula, initial encounter for closed fracture Status: Acute Assessment and Plan: Orthopedic surgery was consulted and noted a right knee joint effusion that was aspirated and injected with cortisone, he is 4 weeks out from his fibular fracture and so they recommended early mobilization, ice, elevation, no surgical intervention needed. There also like him to have consistent use of an ankle stirrup versus a fracture boot. Anticipate healing within 6 weeks and recommend outpatient follow-up with Dr. Wolfe. (4) Acute kidney injury superimposed on chronic kidney disease: Code(s): N17.9 - Acute kidney failure, unspecified; N18.9 - Chronic kidney disease, unspecified Status: Acute Assessment and Plan: continues to improve off IV fluids, down to 2.4 yesterday, repeat pending today DS: Summary Hospital Course Hospital Course: Tingling of male past medical history significant for coronary artery disease, CKD 3, hypertension, hyperlipidemia and new DVT on Eliquis is presenting to the ER with frequent falls and right lower extremity pain. Orthopedic surgery was consulted and imaging showed right fibular fracture in the recommended nonsurgical treatment with an ankle stirrup for a fracture boot and anticipated healing within 6 weeks. They recommended mobility, ice, elevation and follow-up outpatient. They also found right knee effusion and an aspiration and cortisone injection. Patient then requested placement to rehab facilities that of going home to prevent further falling. It took several days to get insurance approval for rehab. During that time, he did have some hypoglycemic episodes and was started on a sliding scale insulin. It does appear that his insulin is uncontrolled at baseline, will defer further management to his family doctor. Time Spent with Patient Time attestation: Total time spent providing and/or coordinating discharge services: Exam Narrative: General: Patient resting comfortably in bed, no acute distress HEENT: Atraumatic, normocephalic, mucous membranes moist CV: Regular rate and rhythm, S1, S2, no murmurs rubs or gallops noted Lungs: Clear to auscultation bilaterally, no rales or crackles noted, no wheezes, good air entry Abdomen: Soft, nontender, nondistended Extremities: Normal to inspection, no edema noted Skin: No rashes noted, no lesions or wounds seen Psych: Euthymic, normal affect Neuro: Cranial nerves 2-12 grossly intact, strength 5/5 upper and lower extremities noted DS: Data Data Compl
== END 2022-04-22 13:55 ==
LOC: ANHED 11:32 → ANH3MEDSUR 17:37
PROVIDERS: Admitting Provider Internal Medicine; Emergency Provider Nurse Practitioner Family; PCP Internal Medicine; Visit Provider Student in an Organized Health Care Education/Training Program
DX: I82.4Z1 Acute embolism and thrombosis of unspecified deep veins of right distal lower extremity (principal); M25.571 Pain in right ankle and joints of right foot; R29.6 Repeated falls; M25.461 Effusion, right knee; Z79.82 Long term (current) use of aspirin; S82.831K Other fracture of upper and lower end of right fibula, subsequent encounter for closed fracture with nonunion; I25.10 Atherosclerotic heart disease of native coronary artery without angina pectoris; E11.42 Type 2 diabetes mellitus with diabetic polyneuropathy; E78.5 Hyperlipidemia, unspecified; Z87.442 Personal history of urinary calculi; Z95.0 Presence of cardiac pacemaker; Z95.1 Presence of aortocoronary bypass graft; E11.65 Type 2 diabetes mellitus with hyperglycemia; N17.9 Acute kidney failure, unspecified; N18.9 Chronic kidney disease, unspecified; I12.9 Hypertensive chronic kidney disease with stage 1 through stage 4 chronic kidney disease, or unspecified chronic kidney disease; E11.22 Type 2 diabetes mellitus with diabetic chronic kidney disease; Z79.01 Long term (current) use of anticoagulants; Z20.822 Contact with and (suspected) exposure to COVID-19
CPT/HCPCS: 20610; 36415; 73564; 73610; 73630; 80048; 80053; 82550; 82948; 83036; 85025; 87426; 97110; 97161; 97165; 97530; 99285; A9270; C9803; G0378; J1815

== ENCOUNTER 2023-05-19 08:58 | Outpatient (CLI) | payer MEDICARE, SELFPAY ==
[2023-05-19 10:23] LABS: Anion Gap 7 mmol/L (8-16); Blood Urea Nitrogen 58 mg/dL (9-20); Carbon Dioxide 25 mmol/L (22-30); Chloride 106 mmol/L (98-107); Estimated Glomerular Filt Rate 21; Glucose 97 mg/dL (65-110); Potassium 4.5 mmol/L (3.4-5.0); Sodium 138 mmol/L (137-145); Uric Acid 8.5 mg/dL (3.5-8.5)
[2023-05-19 10:30] LABS: Parathyroid Intact 77.9 pg/mL (7.5-53.5)
[2023-05-19 10:41] LABS: Creatinine Urine 87.3 mg/dL
[2023-05-19 10:45] LABS: MALB Creatinine Ratio 48.7 mg/g (0-30); Microalbumin Urine Random 42.5 mg/L (0-16.7)
== END 2023-05-19 08:59 | disposition home or self-care (01) ==
PROVIDERS: PCP Internal Medicine
DX: N18.4 Chronic kidney disease, stage 4 (severe) (principal)
CPT/HCPCS: 36415; 80048; 82043; 83970; 84550

== ENCOUNTER 2025-06-19 11:13 | Emergency (ER) | payer MEDICARE, SELFPAY ==
--- NOTE | ~2025-06-19 | XR_ITS ---
EXAMINATION: XR toe 1st RT min 2V DATE: 06/19/2025 11:54 INDICATION: Right great toe injury with nail avulsion TECHNIQUE: Dorsal plantar, lateral and 2 oblique views of the right great toe were obtained. COMPARISON: Right foot radiographs dated 04/18/2022 FINDINGS: Alignment is normal. No fracture. No cortical erosions or periosteal reaction. Mild osteoarthritis at the first metatarsophalangeal joint including at the articulation with the sesamoids. Remaining join t spaces are relatively preserved. IMPRESSION: No acute osseous abnormality. Reviewed, dictated and finalized at location A.
[2025-06-19 11:24] VITALS: BP 150/76; PULSE 74; RESP 20; TEMP 36.6; O2SAT 100
--- NOTE | 2025-06-19 11:57 | ED_ITS ---
HPI - Wound/Laceration General Chief Complaint: Wound/Laceration Stated Complaint: right foot injury Source: patient and RN notes reviewed Mode of arrival: ambulatory Limitations: no limitations History of Present Illness HPI narrative: 74-year-old male presents to the [facility] complaining of right great toe injury. Patient said last night while he was barefoot he dropped a glass top where they use placed in the microwave and fell and struck his right great toe and shattered. Patient reports that injury to his right great toe and prepped part of his nail off. Patient has a history of diabetes, neuropathy, and takes Eliquis for atrial fibrillation and says he cannot get the bleeding under control. Patient reports that it using but is controlled with direct pressure. Patient denies any dizziness, lightheadedness, nausea and vomiting, weakness or any other symptoms. Patient's tetanus is not up to date. Related Data Home Medications ?Medication ?Instructions ?Recorded ?Confirmed ?Last Taken ?Type allopurinol 300 mg tablet 150 mg PO DAILY 03/27/22 04/18/22 Unknown History aspirin 81 mg tablet,delayed 81 mg PO DAILY 03/27/22 04/18/22 Unknown History release atorvastatin 40 mg tablet 40 mg PO DAILY 03/27/22 04/18/22 Unknown History carvedilol 12.5 mg tablet 12.5 mg PO BID 03/27/22 04/18/22 Unknown History gabapentin 300 mg capsule 300 mg PO TID 03/27/22 04/18/22 Unknown History glipizide 10 mg tablet 10 mg PO DAILY 03/27/22 04/18/22 Unknown History hydrochlorothiazide 25 mg tablet 25 mg PO DAILY 03/27/22 04/18/22 Unknown History multivit with minerals-iron 18 1 tablet PO DAILY 03/27/22 04/18/22 Unknown History mg-folic ac 400 mcg-vit K 25 mcg tablet (Adults Multivitamin) sodium zirconium cyclosilicate 5 5 g PO DIRECTED 03/27/22 04/18/22 Unknown History gram oral powder packet (Lokelma) vitamins A,C,G-gspw-sxemek 2,148 1 tablet PO DAILY 03/27/22 04/18/22 Unknown History mcg-113 mg-45 mg-17.4 mg tablet (Eye Multivitamin) apixaban 5 mg tablet (Eliquis) 5 mg PO DAILY 04/18/22 04/18/22 Unknown History insulin glargine 100 unit/mL (3 unit subcut 06/19/25 Unknown History mL) subcutaneous pen (Lantus Solostar U-100 Insulin) Allergies Allergy/AdvReac Type Severity Reaction Status Date / Time No Known Allergies Allergy Verified 06/19/25 11:36 Review of Systems Review of Systems: CONSTITUTIONAL: Denies fever, chills, or sweats. EYES: Denies visual changes, redness, or discharge. ENT: Denies rhinorrhea, congestion, sore throat, or otalgia. CARDIOVASCULAR: Denies chest pain, palpitations, or edema. RESPIRATORY: Denies cough or dyspnea. GASTROINTESTINAL: Denies abdominal pain, nausea, vomiting, or diarrhea. GENITOURINARY: Denies dysuria or hematuria. SKIN: Denies rash or itching. Positive for wound. MUSCULOSKELETAL: Denies back pain, joint pain, or myalgia. Positive for right great toe injury. NEUROLOGIC: Denies headache, numbness, or weakness. PSYCHIATRIC: Denies anxiety or depression. All other systems reviewed are negative, except as documented in HPI. [facility] Past Medical History Medical History Knee effusion, right Right knee pain Gout Kidney stones History of diverticulitis Diabetic peripheral neuropathy Type 2 diabetes mellitus Hyperlipidemia Essential hypertension Third degree heart block Status post pacemaker Coronary artery disease Surgical History Surgical History S/P CABG x 1 (~2001) 1 vessel CABG History of colonoscopy with polypectomy (~2003) Pacemaker (11/2015) Due to third-degree heart block History of appendectomy Family History Family History Mother Lung cancer Smoker Father Hematologic malignancy Heart attack Sibling Kidney disease Heart attack Social History Social History Social History: Code status: DNR/DNI Smoking status: Never smoker Alcohol intake: never Substance use: never Living arrangements: alone Occupation/Education: retired 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 There is no relevant family history pertinent to the patient complaint. Exam Narrative: GENERAL: This is a well-nourished, well-developed adult, in no apparent distress. They are non ill-appearing, nontoxic appearing. HEAD: normocephalic, atraumatic. EYES: Sclera clear/white. Conjunctiva normal. Vision is grossly intact. Extraocular movements intact EARS: External ears normal. Hearing grossly intact. NOSE: External nose normal THROAT: Mucous membranes moist, NECK: Neck supple, CARDIOVASCULAR: Regular rate and rhythm RESPIRATORY: Respiratory rate normal, respiratory effort nonlabored, no respiratory distress SKIN: warm, Dry, intact with no suspicious lesions or rash, good texture and turgor. NEURO: awake, alert, and oriented to person, place and time. There were no obvious focal neurologic abnormalities. EXTREMITIES: Right great toe: Patient family tested tip of his toe. No obvious deformity. No still attached distally, nail avulsion present to the base of the nail bed. Slight bloody oozing under the nail bed. Hemostasis achieved with direct pressure. Patient will is toes, capillary refill less than 2 seconds. Course Course Emergency Course: Portions of this record may have been created with voice recognition software Level of Care: Express Care Visit Vital Signs Vital signs: Vital Signs Temperature 97.9 F 06/19/25 11:24 Pulse Rate 74 06/19/25 11:24 Respiratory Rate 20 06/19/25 11:24 Blood Pressure 150/76 H 06/19/25 11:24 Pulse Oximetry 100 06/19/25 11:24 Oxygen Delivery Room Air 06/19/25 11:24 Temperature 97.9 F 06/19/25 11:24 Pulse Rate 74 06/19/25 11:24 Respiratory Rate 20 06/19/25 11:24 Blood Pressure 150/76 H 06/19/25 11:24 Pulse Oximetry 100 06/19/25 11:24 Oxygen Delivery Room Air 06/19/25 11:24 Reviewed Procedures Laceration Laceration 1: Date: 06/19/25 Time: 12:40 Site: lower extremity (Right great toe nail bed) Side (If applicable): right Size (cm): 0.1 Description: linear Depth: simple, single layer Local Anesthetic: lidocaine 1% (Right great toe digital block) Amount of anesthesia used (mL): 3 Pre-repair: wound explored, irrigated extensively, minor debridement and other (Toenail removed.) ====== Skin Level ====== Skin layer closed with: other (Chromic gut) Size (cm): 5-0 Number of sutures: 1 Technique: other (Figure-eight) ====== Subcutaneous Layer ====== ====== Muscle Layer ====== ====== Tendon Layer ====== Dressing: Vaseline gauze and pressure dressing. MDM - Wound/Laceration MDM Narrative Medical decision making narrative: Patient's tetanus is updated. Will obtain imaging to rule out fracture. X-ray of right great toe shows no evidence fracture or acute findings.. Through shared decision making patient says to go ahead and remove the down do not reattachment. Patient is aware there is a risk that may not grow back. Nails removed successfully. Exploration of wound bed of nail show small laceration in the lateral side of the great toe were it is oozing blood. Figure-eight suture placed and hemostasis is achieved. Patient is placed in a Vaseline gauze with a pressure dressing by nursing staff. Will send patient home on cephalexin for infection prevention given his history of diabetes. Will refer patient of podiatry. Discussed physical exam findings. Advised supportive measures and signs/symptoms to go to the ER. Pt is appropriate for outpt treatment and f/u. Differential Diagnosis Differential diagnosis: Likely laceration, avulsion of skin and other (Nail avulsion, toe fracture, subungual laceration) Imaging Data Radiologist's impression: ITS Impressions Toe X-Ray 06/19/25 11:57 IMPRESSION: No acute osseous abnormality. Critical Care Time Critical Care Time Critical Care Time: No Discharge Plan Discharge Clinical Impression: Avulsion of skin Nail avulsion, toe Qualifiers: Encounter type: initial encounter Qualified Code(s): S91.209A - Unspecified open wound of unspecified toe(s) with damage to nail, initial encounter Crushing injury of great toe of right foot Qualifiers: Encounter type: initial encounter Qualified Code(s): S97.111A - Crushing injury of right great toe, initial encounter Patient Disposition: Home Condition: Stable Instructions: Antibiotic Form, Skin Avulsion (ED), Nail Avulsion (ED), Nail Removal (ED) Additional Instructions: Your great toenail was removed today. There is a possibility and may not grow back. The sutures in your right great toe will dissolve in 3-5 days. Change the dressing every 3 days and keep dry. Prior to changing the dressing please soak it in water and shower with antibacterial soap, pat dry then apply a new dressing. No pappas or dirty water for 2 weeks. You may swimming pools if chlorinated. Take cephalexin as directed. Your tetanus is updated today. Follow-up with Podiatry. Return to the ER if you develop increased redness, swelling, pain, fevers, body aches, chills, green/yellow drainage, or any uncontrolled bleeding. Patient Language: Indonesian Prescriptions: New cephalexin 500 mg capsule 500 mg PO Q6H 7 Days Qty: 28 0RF No Action insulin glargine [Lantus Solostar U-100 Insulin] 100 unit/mL (3 mL) insulin pen SUBCUT atorvastatin 40 mg tablet 40 mg PO DAILY carvedilol 12.5 mg tablet 12.5 mg PO BID glipizide 10 mg tablet 10 mg PO DAILY aspirin 81 mg Tablet,Delayed Release (Dr/Ec) 81 mg PO DAILY gabapentin 300 mg capsule 300 mg PO TID allopurinol 300 mg tablet 150 mg PO DAILY hydrochlorothiazide 25 mg tablet 25 mg PO DAILY Eye Multivitamin 7,160 unit- 113 mg-100 unit Tablet 1 tablet PO DAILY Adults Multivitamin 18 mg iron-400 mcg-25 mcg Tablet 1 tablet PO DAILY Lokelma 5 gram powder in packet 5 g PO DIRECTED Rx Instructions: 1 packet friday, friday, friday Eliquis 5 mg tablet 5 mg PO DAILY Rx Instructions: start this after you complete the 10mg bid. Follow-up/Referrals: Thony Moscoso DPM [Physician] - Stanley Garcia Jr., DPM [Physician] - Julio C,Surinder Dela Cruz MD [Primary Care Provider] - Time of Disposition: 13:05 Nail Procedure Pre Procedure Consent was obtained, Procedures/risks were explained, Questions were answered, Correct patient identified and Correct side and site confirmed Nail Removal Nail matrix by: Excision Comments:: right great toe Avulsion Nail Plate Avulsion nail plate: Avulsion nail plate singl Repair of nail bed Repair of nail bed: Yes Post Procedure Patient tolerated the procedure well?: Tolerated procedure well
[2025-06-19] MEDS: TETANUS,DIPHTHERIA,AC PERTUSSIS ADULT (0.5 ML) BOOSTRIX IM (12:00)
== END 2025-06-19 13:15 | disposition home or self-care (01) ==
PROVIDERS: PCP Internal Medicine
DX: S91.211A Laceration without foreign body of right great toe with damage to nail, initial encounter (principal); S97.111A Crushing injury of right great toe, initial encounter; W20.8XXA Other cause of strike by thrown, projected or falling object, initial encounter; Z23 Encounter for immunization; E11.42 Type 2 diabetes mellitus with diabetic polyneuropathy; Z79.4 Long term (current) use of insulin; Z79.85 Long-term (current) use of injectable non-insulin antidiabetic drugs; I48.91 Unspecified atrial fibrillation; Z79.01 Long term (current) use of anticoagulants; M10.9 Gout, unspecified; E78.5 Hyperlipidemia, unspecified; I25.10 Atherosclerotic heart disease of native coronary artery without angina pectoris; Z95.1 Presence of aortocoronary bypass graft; Z95.0 Presence of cardiac pacemaker; Z79.82 Long term (current) use of aspirin
CPT/HCPCS: 12001; 73660; 90471; 90715; 99213; G0463